=== PATIENT | female | born 1985 | race African-American/Black ===

== ENCOUNTER 2021-11-11 10:00 | Outpatient (RCR) | payer OTHER, SELFPAY ==
--- NOTE | 2021-10-09 14:44 | PTOPEVAL ---
Addendum entered by Sandee Lemons, PT, DPT 10/13/21 11:29: New Attending Provider: Mac Diez DO Addendum entered by Sandee Lemons, PT, DPT 10/09/21 16:14: PHYSICAL THERAPY INITIAL EVALUATION. Original Note: PHYSICAL THERAPY PROGRESS REPORT AND DISCHARGE SUMMARY. Thank you for referring NABILA CORREA to [facility].? The patient is scheduled to be seen for therapy? 2x/week for 4 weeks. Please review, sign, date and return this plan of care BONI. I agree with and certify that the following plan of care is medically necessary. Referring Physician Date Attending Provider: Deneen Henry, JOSE CRUZC *PT Outpatient Evaluation Start: 10/09/21 Evaluation Information Diagnosis low back pain Onset chronic Subjective Information Pt reports a 20 year history Query Text:As Reported By Patient/ of back pain that causes her Family to have muscle spasms. She has been taking muscle relaxers on and off for many years. She states she stands a lot for work and will get shooting pains down the R leg. She states while she is walking she can feel a pulling sensations in her back and posterior leg. She does report intermittent widespread throughout her lower back. She reports intermittent numbness down to the knee. 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 Pain Assessment Self Report Pain Assessment Lower Back Reported Pain Level 7 Pain Description Numbness,Tightness Pain Radiation Right Leg Pain Frequency Chronic,Intermittent Lowest Pain Intensity 5 Greatest Pain Intensity 10 Pain Aggravating Factors Bending,Prolonged Position, Walking,Weight Bearing/ Standing Patient Lumbar ROM Lumbar Flexion Active Ankle Lumbar Extension (0-40) 40 Lateral Flexion able to reach lateral knee Query Text:Active Hands to: joint bilaterally - reports of pain with R lateral flexion Lateral Rotation Right (0-45) 20 Lateral Rotation Left (0-45) 20 Lumbar Comments 13 cm of forward flexion, 6 cm of extension - no reports of movement bias with repeated flexion/extension Lower Extremity Range of Motion Gross Lower Extremity Range of Motion pain reported at max hip Comment
--- NOTE | 2021-10-09 16:15 | PCPTNOTE ---
PHYSICAL THERAPY INITIAL EVALUATION. Thank you for referring NABILA CORREA to [facility].? The patient is scheduled to be seen for therapy? 2x/week for 4 weeks. Please review, sign, date and return this plan of care BONI. I agree with and certify that the following plan of care is medically necessary. Referring Physician Date Attending Provider: Deneen Henry, JOSE CRUZC *PT Outpatient Evaluation Start: 10/09/21 Evaluation Information Diagnosis low back pain Onset chronic Subjective Information Pt reports a 20 year history Query Text:As Reported By Patient/ of back pain that causes her Family to have muscle spasms. She has been taking muscle relaxers on and off for many years. She states she stands a lot for work and will get shooting pains down the R leg. She states while she is walking she can feel a pulling sensations in her back and posterior leg. She does report intermittent widespread throughout her lower back. She reports intermittent numbness down to the knee. 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 Pain Assessment Self Report Pain Assessment Lower Back Reported Pain Level 7 Pain Description Numbness,Tightness Pain Radiation Right Leg Pain Frequency Chronic,Intermittent Lowest Pain Intensity 5 Greatest Pain Intensity 10 Pain Aggravating Factors Bending,Prolonged Position, Walking,Weight Bearing/ Standing Patient Lumbar ROM Lumbar Flexion Active Ankle Lumbar Extension (0-40) 40 Lateral Flexion able to reach lateral knee Query Text:Active Hands to: joint bilaterally - reports of pain with R lateral flexion Lateral Rotation Right (0-45) 20 Lateral Rotation Left (0-45) 20 Lumbar Comments 13 cm of forward flexion, 6 cm of extension - no reports of movement bias with repeated flexion/extension Lower Extremity Range of Motion Gross Lower Extremity Range of Motion pain reported at max hip Comments flexion Lower Extremity Muscle Strength Testing Gross Lower Extremity Strength BLE grossly 4+/5 except hip abduction
--- NOTE | 2021-10-13 08:48 | PCPTNOTE ---
Patient did not show up for scheduled appointment this date. Called and spoke with Pt, she apologized for missing and thought her appointment was at 14:30, she is currently in orientation for work. Reminded Pt of upcoming appointment on Wednesday10/17/21 is at 14:30. This in Pt's first N/S.
--- NOTE | 2021-10-13 11:30 | PTOPEVAL ---
NABILA CORREA Female : 1985 [facility]# [id number] 10/09/21 14:44 - PT OP Evaluation by Sandee Lemons, PT, DPT Acct Num: [id number] : 1985 Patient Age: 36 PHYSICAL THERAPY INITIAL EVALUATION. Thank you for referring NABILA CORREA to [facility].? The patient is scheduled to be seen for therapy? 2x/week for 4 weeks. Please review, sign, date and return this plan of care BONI. I agree with and certify that the following plan of care is medically necessary. Referring Physician Date Attending Provider: Mac Diez DO *PT Outpatient Evaluation Start: 10/09/21 Evaluation Information Diagnosis low back pain Onset chronic Subjective Information Pt reports a 20 year history Query Text:As Reported By Patient/ of back pain that causes her Family to have muscle spasms. She has been taking muscle relaxers on and off for many years. She states she stands a lot for work and will get shooting pains down the R leg. She states while she is walking she can feel a pulling sensations in her back and posterior leg. She does report intermittent widespread throughout her lower back. She reports intermittent numbness down to the knee. 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 Pain Assessment Self Report Pain Assessment Lower Back Reported Pain Level 7 Pain Description Numbness,Tightness Pain Radiation Right Leg Pain Frequency Chronic,Intermittent Lowest Pain Intensity 5 Greatest Pain Intensity 10 Pain Aggravating Factors Bending,Prolonged Position, Walking,Weight Bearing/ Standing Patient Lumbar ROM Lumbar Flexion Active Ankle Lumbar Extension (0-40) 40 Lateral Flexion able to reach lateral knee Query Text:Active Hands to: joint bilaterally - reports of pain with R lateral flexion Lateral Rotation Right (0-45) 20 Lateral Rotation Left (0-45) 20 Lumbar Comments 13 cm of forward flexion, 6 cm of extension - no reports of movement bias with repeated flexion/extension Lower Extremity Range of Motion Gross Lower Extremity Range of Motion pain reported at max hip Comments flexion Lower Extremity Muscle Strength Te
--- NOTE | 2021-10-14 09:29 | PCPTNOTE ---
Patient called & cancelled scheduled appointment on 10/17, 10/21, 10/24, and 10/27 due to having eye surgery.
--- NOTE | 2021-10-17 08:53 | PCPTNOTE ---
Patient called & cancelled scheduled appointment this date due to having eye surgery.
--- NOTE | 2021-10-29 09:39 | PCPTNOTE ---
Patient did not show up for scheduled appointment this date. Called and had to leave a message
--- NOTE | 2021-11-03 14:36 | PCPTNOTE ---
Patient called & cancelled scheduled appointment this date due to not being able to make it.
--- NOTE | 2021-11-11 10:27 | PCPTNOTE ---
Patient did not show up for scheduled appointment this date.
--- NOTE | 2021-11-11 10:29 | PCPTNOTE ---
Attending Provider: Mac Diez DO Patient:NABILA CORREA Date of :1985 PHYSICAL THERAPY DISCHARGE SUMMARY. Patient has not returned for any further treatments since 10/09/2021, therefore she will be discharged at this time. Patient?s initial visit was on 10/09/2021 13:30 and she had a total of 1 visits, she has no showed 3 times and cancelled the other remaining appointments. A voicemail was left notifying her of discharge. Thank you for referring this patient to [facility]. Please review, sign, date and return this discharge summary BONI. I have been updated about the patient's current status and I agree with discharge from the above service at this time. Referring Physician Date
== END 2021-11-11 13:39 | disposition home or self-care (01) ==
LOC: ANHPT 10:00
PROVIDERS: PCP Internal Medicine; Visit Provider Internal Medicine
DX: M54.9 Dorsalgia, unspecified (principal); G89.29 Other chronic pain
CPT/HCPCS: 97112; 97161; 99199

== ENCOUNTER 2022-05-05 12:27 | Outpatient (CLI) | payer OTHER, SELFPAY ==
--- NOTE | ~2022-05-05 | US_ITS ---
Pelvic ultrasound. Clinical History: Excessive and frequent menstruation Technique: Realtime transabdominal and transvaginal scanning of the pelvis was performed. Color flow Doppler and Doppler spectral analysis were performed. Findings: The uterus is anteverted. The endometrial stripe has a thickness of 4 mm. No focal myometr ial mass is identified. Cervical nabothian cysts are present. The right ovary measures 4.3 x 2.5 x 2.7 cm. No significant right ovarian or adnexal mass is seen. The left ovary measures 3.8 x 2.9 x 3.2 cm. No significant left ovarian or adnexal mass is seen. Both ovaries demonstrate small peripherally oriented follicular cysts. Vascular flow present in both ovaries on Doppler spectral analysis. There is no evidence of free fluid in the cul de sac. Impression: Morphologic findings of the ovaries raise the possibility of polycystic ovarian syndrome. Correlate c linically. Reviewed, dictated and finalized at [facility]. Y CEMENTER Impression: Morphologic findings of the ovaries raise the possibility of polycystic ovarian syndrome. Correlate clinically.
== END 2022-05-05 12:28 | disposition home or self-care (01) ==
PROVIDERS: PCP Internal Medicine; Visit Provider Obstetrics & Gynecology
DX: N92.0 Excessive and frequent menstruation with regular cycle (principal)
CPT/HCPCS: 76830; 76856

== ENCOUNTER 2022-05-21 10:15 | Outpatient (CLI) | payer OTHER, SELFPAY ==
--- NOTE | ~2022-05-21 | XR_ITS ---
EXAMINATION: XR foot RT min 3V DATE: 05/21/2022 10:53 INDICATION: Right foot pain at the proximal fourth and fifth metatarsals TECHNIQUE: Dorsoplantar, two oblique and lateral views of the right foot were obtained. COMPARISON: None. FINDINGS: Alignment is normal. No fracture. Minimal to mild polyarticular osteoarthritis throughout the right f oot most prominent at the first, second and fourth tarsal metatarsal joints. No erosions to suggest i nflammatory arthritis. Small enthesophytes at the calcaneus and medial malleolus. Soft tissues are un remarkable. No ankle joint effusion. IMPRESSION: 1. Minimal to mild polyarticular osteoarthritis in the right foot greatest at the first, second and f ourth tarsal metatarsal joints. Reviewed, dictated and finalized at location L. IMPRESSION: 1. Minimal to mild polyarticular osteoarthritis in the right foot greatest at t he first, second and fourth tarsal metatarsal joints.
== END 2022-05-21 10:16 | disposition home or self-care (01) ==
PROVIDERS: PCP Nurse Practitioner; Visit Provider Nurse Practitioner
DX: M19.071 Primary osteoarthritis, right ankle and foot (principal)
CPT/HCPCS: 73630

== ENCOUNTER 2023-05-14 12:14 | Outpatient (CLI) | payer BC, OTHER, SELFPAY ==
--- NOTE | 2023-05-14 15:11 | WPDPFTINT ---
PFT Procedure Performed PFT Procedure Performed Spirometry with Pre/Post Bronchodilator Plethysmography (Lung Vol) Diffusing Cap (DLCO) Flow Vol Loop PFT Interpretation This is a pulmonary function test with pre and post-bronchodilator spirometry, plethysmography and diffusing capacity. The test was performed and results interpreted in accordance with the 2019 and 2005 ATS/ERS Task Force guidelines respectively using the Global Lung Function Initiative-2012 reference equations. Patient demonstrated good effort and cooperation. Reproducibility criteria were met. The quality of the pre bronchodilator spirometry maneuver was Grade A and post bronchodilator spirometry maneuver was Grade A. Findings: Spirometry: the contour the inspiratory and expiratory flow tracing are normal. The pre bronchodilator FVC is 1.71 L, 52% predicted. The pre bronchodilator FEV1 is 1.46 L, 54% predicted. The pre bronchodilator FEV1: FVC ratio is 85%. The post bronchodilator FVC is 1.48 L, representing a 14% decrease. The post bronchodilator FEV1 is 1.46 L, representing no change. The post bronchodilator FEV1: FVC ratio is 99%. Plethysmography: The total lung capacity is 3.31 L, 72% predicted. The functional residual capacity is 1.32 L, 50% predicted. The residual volume is 1.30 L, 88% predicted. Diffusing capacity: The diffusing capacity unadjusted for hemoglobin and carboxyhemoglobin is 11.8, 48% predicted. The diffusing capacity adjusted for alveolar volume is 5.26, 111% predicted. Impression: There is a moderately severe restrictive ventilatory abnormality. The spirometry is normal without evidence of an obstructive abnormality. There is no significant improvement after inhaling a single dose of albuterol. The diffusing capacity unadjusted for hemoglobin and carboxyhemoglobin is moderately decreased and normalizes when adjusted for alveolar volume. There are no prior studies for comparison
== END 2023-05-14 12:15 | disposition home or self-care (01) ==
LOC: ANHPFT 12:15
PROVIDERS: PCP Nurse Practitioner Family; Visit Provider Nurse Practitioner Family
DX: R06.02 Shortness of breath (principal); R94.2 Abnormal results of pulmonary function studies
CPT/HCPCS: 94060; 94726; 94729

== ENCOUNTER 2023-05-19 12:39 | Outpatient (CLI) | payer BC, OTHER, SELFPAY ==
--- NOTE | ~2023-05-19 | XR_ITS ---
EXAMINATION: XR chest 2V DATE: 05/19/2023 12:54 INDICATION: Shortness of breath and chest pain with coughing TECHNIQUE: PA and lateral views of the chest were obtained. COMPARISON: None FINDINGS: Mild opacities at the left lung base. Right lung is clear. No pulmonary edema, pleural effusion or pn eumothorax. The cardiomediastinal silhouette is normal. Cholecystectomy clips in right upper quadrant . IMPRESSION: 1. Mild left basilar opacities which could represent atelectasis or pneumonia. Reviewed, dictated and finalized at location B.
== END 2023-05-19 12:40 | disposition home or self-care (01) ==
LOC: ANHIMG 12:43
PROVIDERS: PCP Nurse Practitioner Family; Visit Provider Nurse Practitioner Family
DX: J98.4 Other disorders of lung (principal); R06.02 Shortness of breath; R91.8 Other nonspecific abnormal finding of lung field
CPT/HCPCS: 71046

== ENCOUNTER 2023-06-23 14:40 | Outpatient (CLI) | payer BC, OTHER, SELFPAY ==
--- NOTE | ~2023-06-23 | CT_ITS ---
EXAMINATION:CT diagnostic chest wo con DATE: 06/23/2023 14:57 INDICATION: Other disorders of lung. Shortness of breath. TECHNIQUE: Computed tomography (CT) of the chest was performed without intravenous contrast. Automate d exposure control and iterative reconstruction technique were employed. The dose-length product (DLP ) was 512.57 mGy-cm. COMPARISON: Chest 2 views 05/19/2023 FINDINGS: The lung volumes are small. There is a 7 mm nodule in left lower lobe. There is mild atelec tasis bilaterally. There are peripheral mild peripheral groundglass opacities in all lobes. No bronch iectasis or honeycombing. No pleural effusion. The heart size is normal. No pericardial effusion. The re is mild thoracic spondylosis. IMPRESSION: 1. Small lung volumes. Mild peripheral groundglass opacities in all lobes may be mild atelectasis, at ypical pneumonia, or chronic lung disease such as nonspecific interstitial pneumonia (NSIP) or desqua mative interstitial pneumonia (DIP). 2. 7 mm nodule in left lung lower lobe, probably benign. Noncontrast low-dose chest CT is recommended in 6 months. Reviewed, dictated and finalized at location E. IMPRESSION: 1. Small lung volumes. Mild peripheral groundglass opacities in all lobes may b e mild atelectasis, atypical pneumonia, or chronic lung disease such as nonspec ific interstitial pneumonia (NSIP) or desquamative interstitial pneumonia (DIP) . 2. 7 mm nodule in left lung lower lobe, probably benign. Noncontrast low-dose c hest CT is recommended in 6 months.
== END 2023-06-23 14:41 | disposition home or self-care (01) ==
PROVIDERS: PCP Nurse Practitioner Family; Visit Provider Nurse Practitioner Family
DX: R06.02 Shortness of breath (principal); J98.4 Other disorders of lung; R91.1 Solitary pulmonary nodule
CPT/HCPCS: 71250

== ENCOUNTER 2023-10-27 13:31 | Outpatient (CLI) | payer OTHER, SELFPAY ==
[2023-10-27 14:05] LABS: Alveolar/Arterial O2 Gradient 16.1 mmHg; Base Excess ABG -2.2 mEq/l (+/-2.0); Carboxyhemoglobin 0.2 % THb (0-2.0); Fractional Inspired Oxygen 21 %; HCO3 ABG 21.1 mEq/l (22.0-26.0); Methemoglobin ABG 0.1 %THb (0-1.5); Oxygen Content ABG 17.8 %vol (16.0-22.0); Oxygen Saturation ABG 97.6 % (95.0-100.0); Oxyhemoglobin 97.4 % THb (90.0-100.0); PCO2 ABG 31.8 mmHg (35.0-45.0); PO2 ABG 95.6 mmHg (80.0-100.0); PO2 FiO2 Ratio Arterial Blood 4.55 %; Reduced Hemoglobin 2.3 %THb (0-5.0); Total Hemoglobin 12.9 g/dL (12.0-18.0)
--- NOTE | 2023-10-27 14:17 | ECHO_ITS ---
Patient Info Name: Lacey Sauer Age: 38 years : 1985 Gender: Female Ht: 64 in Wt: 265 lbs BSA: 2.40 m2 HR: 83 bpm BP: 118 / 88 mmHg Heart Rhythm: Sinus Rhythm Technical Quality: Good Exam Date: 10/27/2023 2:27 PM Exam Location: Echo Lab Patient Status: Outpatient Admit Date: 10/27/2023 Staff Ordering Physician: Lefty Brunson MD Guest Services Coordinator: Alexus Gonzalez RDCS Attending Provider: Lefty Brunson MD Referring Physician: Boy SUERO; Exam Type: CA echo doppler color flow Study Info Indications R06.02 - Shortness of breath Complete two-dimensional, color flow and Doppler transthoracic echocardiogram is performed. Summary 1. Complete two-dimensional, color flow and Doppler transthoracic echocardiogram is performed. 2. Left ventricular chamber dimension is normal. 3. Left ventricular systolic function is normal, estimated at 65-70%. 4. The left ventricular diastolic function is normal. 5. E/e' 9 is minimally elevated. 6. There is trace tricuspid valve regurgitation. 7. No pulmonary hypertension, estimated pulmonary arterial systolic pressure is 29 mmHg. Left Ventricle E/e' 9 is minimally elevated. Left ventricular chamber dimension is normal. Left ventricular systolic function is normal, estimated at 65-70%. The left ventricular diastolic function is normal. Right Ventricle Right ventricular systolic function is normal and with normal TAPSE 1.8 cm. Right ventricular chamber dimension is normal. Left Atria Left atrial chamber dimension is normal. Right Atria Right atrial chamber dimension is normal. Aortic Valve The aortic valve is trileaflet. There is no aortic valve stenosis. There is no aortic valve regurgitation. Pulmonic Valve There is no pulmonic regurgitation. Mitral Valve There is no mitral valve stenosis. There is no mitral valve regurgitation. Tricuspid Valve There is trace tricuspid valve regurgitation. No pulmonary hypertension, estimated pulmonary arterial systolic pressure is 29 mmHg. Pericardium/Pleural There is no pericardial effusion. Inferior Vena Cava Normal inferior vena cava with >50% collapse upon inspiration consistent with normal right atrial pressure, 5 mmHg. Aorta The aortic root size at the sinus of Valsalva is normal. Left Ventricular Outflow Tract Name Value Normal LVOT 2D LVOT Diameter 2.0 cm LVOT Doppler LVOT Peak Gradient 4 mmHg LVOT Mean Gradient 2 mmHg LVOT VTI 19 cm LVOT VTI/AV VTI Ratio 0.8 LVOT Stroke Volume 60 ml LVOT CO 3.9 l/min LVOT CI 1.6 l/min/m2 Pulmonic Valve Name Value Normal RVOT Doppler RVOT Peak Gradient 1 mmHg PV Doppler PV Peak Gradie
[2023-10-27 14:18] LABS: Device ROOM AIR; Modified Allen's Test Pass; Site Drawn RIGHT RADIAL
--- NOTE | 2023-10-28 13:08 | WPDSIXMINUTE ---
Six Minute Walk Procedure Procedure Performed Pulmonary Stress Test (6 min walk) Six Minute Walk Six Minute Walk: DATE OF SERVICE: 10/27/2023 REQUESTING: Dr Lefty Brunson REASON FOR TESTING: SIX MINUTE WALK This test was conducted per ATS guidelines. The initial saturation was 98%, and initial heart rate was 86 beats per minute. The patient walked without stopping, completing 1400 ft/427.7 m. The saturation at the end of testing was 96%, and the heart rate was 113 beats per minute. The patient had negligible dyspnea and fatigue starting the test and by the end of the test had a Grecia scale 7 which is significant shortness of breath. Highest heart rate was 120 bpm. IMPRESSION: This is a normal study. The patient did not require supplemental oxygen with exertion. Jesusita Espinosa MD
== END 2023-10-27 13:32 | disposition home or self-care (01) ==
LOC: ANHPFT 13:33
PROVIDERS: PCP Nurse Practitioner Family; Visit Provider Internal Medicine Pulmonary Disease
DX: R06.02 Shortness of breath (principal); J98.4 Other disorders of lung
CPT/HCPCS: 36600; 82375; 82805; 83050; 93306; 94618

== ENCOUNTER 2023-11-19 08:01 | Outpatient (CLI) | payer OTHER, SELFPAY ==
--- NOTE | 2023-12-14 16:54 | WPDSLEEPSTUD ---
Sleep Study Date of Study: 11/19/23 Ordering Provider: Lefty Brunson MD Interpreting Physician: Julia Hills DO Sleep Study Type: Polysomnogram Height: 1.65 m Weight: 120.202 kg Body Mass Index: 44.1 Neck Circumference (inches): 17 [place]: 7 Reason for Sleep Study Snoring, daytime hypersomnia Sleep History The patient is a 38 year old female that had a sleep study ordered the pulmonary group for evaluation of sleep apnea. The patient rarely awakens from sleep short of breath. She occasionally awakens night with heartburn belching or. She frequently snores is occasionally loud others complain. She rarely wakes up gasping for air throughout the. She denies having breathing problems observed herself or others. She occasionally sweats excessively at night. She rarely has heart palpitations or irregular heartbeats during. She occasionally falls asleep during the day while driving. She denies sleep paralysis, cataplexy and/ hypnopompic hallucinations. She denies having trouble at school or work due to sleepiness. She denies feeling afraid of going sleep. She denies having nightmares. She occasionally her dreams. She occasionally thoughts racing through her. She denies sad, depressed or anxious. She denies having muscular tension. She occasionally notices parts of her body jerk. She rarely kicks during the night. She rarely has crawling and aching feelings she rarely has leg pain the. She frequently grinds her teeth during sleep but never awakens with morning jaw pain. She is frequently bothered by pain during the day and is frequently awakened by pain during the night. She occasionally wakes up feeling stiff morning. She occasionally wakes up with sore or achy muscles. She rarely wakes up with pain in the neck, spine or other joints. She goes to bed at 11:00 p.m. both weekdays and weekends. The amount of time it takes for her to fall asleep is variable. She wakes up often throughout the night to urinate and the amount of time for her to fall back asleep is variable. She wakes up between 5-6 a.m. on weekdays a between 5-7 a.m. on weekends. She typically gets 6-8 hours of sleep per night. She does not stay in bed after waking up in morning. She currently lives with her and son. She denies consuming any caffeinated beverages within 2 hours of bedtime. She denies engaging physical exercise bedtime. She will watch television before asleep. She will take naps afternoon the evening and they are refreshing. She denies consuming caffeinated beverages during the day. She quit smoking cigarettes 12 years ago. She denies alcohol consumption. She does smoke marijuana daily. [facility] Past Medical History Medical History Allergies Shortness of Breath Surgical History Surgical History H/O wisdom tooth extraction Hx of cholecystectomy 03/06/2010 Hx of non-cataract eye surgery Family History Family History Grandparent Cancer pancreatic Hypertension Mother Hypertension Cerebrovascular accident Thyroid disorder Diabetes mellitus Social History Social History Smoking status: Never smoker (Never tobacco smoker - daily marijuana smoking) Alcohol intake: current Substance use: never Lack of Transportation: No Lack of Food: Never True Current Housing: I Have Housing Concerned About Future Housing: No Difficulty Paying Gas/Electric Bills: YES Difficulty Paying for Meds: No Currently Unemployed: No Education: Trade/Vocational Certificate Difficulty w/ Childcare or Family Care: No Living arrangements: with family Occupation/Education: occupation 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
[2023-12-15 11:51] VITALS: BMI 44.1
== END 2023-11-20 07:45 | disposition home or self-care (01) ==
PROVIDERS: PCP Nurse Practitioner Family; Visit Provider Internal Medicine Pulmonary Disease
DX: G47.10 Hypersomnia, unspecified (principal); G47.33 Obstructive sleep apnea (adult) (pediatric)
CPT/HCPCS: 95810

== ENCOUNTER 2023-11-20 06:47 | Outpatient (CLI) | payer OTHER, SELFPAY ==
[2023-11-20 07:44] LABS: CRP < 0.5 mg/dL (<1.0); Creatine Kinase 591 U/L (30-135)
[2023-11-20 07:49] LABS: Erythrocyte Sedimentation Rate 15 mm/hr (0-20)
[2023-11-22 14:12] LABS: SS-A <1.0 NEG AI (<1.0 NEG); SS-B <1.0 NEG AI (<1.0 NEG)
[2023-11-22 14:23] LABS: Aldolase 9.5 U/L (< OR = 8.1)
[2023-11-23 15:09] LABS: Anti Cyclic Citrullinated Pept <16 UNITS
[2023-11-26 16:39] LABS: JO-1 AB <11 SI (<11); MI-2 Alpha Ab <11 SI (<11); MI-2 Beta Ab <11 SI (<11); NXP-2 AB <11 SI (<11); TIF1 Gamma Ab <11 SI (<11)
== END 2023-11-20 06:48 | disposition home or self-care (01) ==
PROVIDERS: PCP Nurse Practitioner Family; Visit Provider Internal Medicine Pulmonary Disease
DX: J98.4 Other disorders of lung (principal); J84.9 Interstitial pulmonary disease, unspecified; R91.1 Solitary pulmonary nodule
CPT/HCPCS: 36415; 82085; 82550; 84182; 85652; 86140; 86200; 86235

== ENCOUNTER 2023-12-16 08:52 | Outpatient (CLI) | payer OTHER, SELFPAY ==
--- NOTE | ~2023-12-16 | CT_ITS ---
CT Scan of the Chest without Contrast: Clinical Indication: Other disorder of lung Technique: Contiguous sections were acquired throughout the chest without intravenous contrast. Dose reduction technique was used on this scan by utilizing automated exposure control and iterative recon struction technique. The dose-length product (DLP) was 481.68 mGy-cm. COMPARISON: 06/23/2023 Findings: There is no evidence of any significant mediastinal, hilar or axillary lymphadenopathy. The mediastin al soft tissues appear normal. There is no evidence of pleural or pericardial effusion. There are mild peripheral patchy ground glass opacities and minimal areas of peripheral interstitial thickening. Images through the upper abdomen reveal no abnormalities. Impression: Mild patchy peripheral ground glass opacities and minimal areas of peripheral interstitial thickening . Appearance is similar to prior exam. Diagnostic considerations could include chronic interstitial d isease, Covid 19 or other infectious/inflammatory conditions. Clinical correlation is required. Reviewed, dictated and finalized at [facility]. Impression: Mild patchy peripheral ground glass opacities and minimal areas of peripheral i nterstitial thickening. Appearance is similar to prior exam. Diagnostic conside rations could include chronic interstitial disease, Covid 19 or other infectiou s/inflammatory conditions. Clinical correlation is required.
== END 2023-12-16 08:53 | disposition home or self-care (01) ==
PROVIDERS: PCP Nurse Practitioner Family; Visit Provider Internal Medicine Pulmonary Disease
DX: R06.02 Shortness of breath (principal); J98.4 Other disorders of lung
CPT/HCPCS: 71250

== ENCOUNTER 2024-04-26 10:09 | Outpatient (CLI) | payer MEDICAID, SELFPAY ==
--- OUTSIDE RECORDS SUMMARY | 2024-04-26 10:21 | XMS_ITS | Referral Summary ---
Author Organization [facility] Address [address] [place] [address] Care Team Providers Care On Air Announcer Name Role Phone Mac Diez DO Primary Care Provider [phone] Source Comments [facility],non-owned Affiliates and Associated Physician Practices is amultiple site organization consisting of ambulatory clinics and hospital sitesin [place], [place], [place] and [place]. This disclosure is being madepursuant to the Care Everywhere program and may not contain all information available regarding this patient. Last updated 17.[facility] Allergies Active Allergy Reactions Criticality Noted Date Comments Penicillins Rash Medium 08/10/2019 Medications * Be aware that medications may not be up to date on this document. Alwaysverify current medications with the patient. Medication Sig Dispensed Refills Start Date End Date Status albuterol HFA (Proventil; Ventolin; Proair) 108 (90 Base) MCG/ACT inhaler INHALE 1 PUFF BY MOUTH EVERY 4 HOURS NEEDED FOR SHORTNESS OF BREATH FOR WHEEZING 09/10/2021 Active lidocaine (Lidoderm) 5 % patch USE 1 PATCH EXTERNALLY ONCE DAILY. LEAVE ON MOST PAINFUL AREA FOR UP TO 12 HOURS 10/07/2021 Active medroxyPROGESTERone (Depo-Provera) 150 MG/ML prefilled syringe ADMINISTER 1 ML IN THE MUSCLE EVERY 3 MONTHS 02/24/2022 Active methocarbamol (Robaxin) 750 MG tablet Take 1 (one) tablet by mouth at bedtime 02/10/2022 Active erythromycin (Romycin) 5 MG/GM ophthalmic ointment Apply thin ribbon to incisions four times a day as well as into both eyes at bedtime. 3.5 g 3 06/15/2022 Active Active Problems Problem Noted Date Diagnosed Date Prolapse of lacrimal gland, bilateral 03/18/2022 Eyelid retraction left upper eyelid 03/18/2022 Social History Tobacco Use Types Packs/Day Years Used Date Smoking Tobacco: Never Smokeless Tobacco: Never Tobacco Cessation:Counseling Given: Not Answered Alcohol Use Standard Drinks/Week Comments Never 0 (1 standard drink = 0.6 oz pur e alcohol) Sex and Gender Information Value Date Recorded Sex Assigned at Not on file Gender Identity Not on file Sexual Orientation Not on file Last Filed Vital Signs Vital Sign Reading Time Taken Comments Blood Pressure 125/84 06/15/2022 2:56 PM CDT Pulse 64 06/15/2022 3:00 PM CDT Temperature 36.5 C (97.7 F) 06/15/2022 2:46 PM CDT Respiratory Rate 15 06/15/2022 3:00 PM CDT Oxygen Saturation 99% 06/15/2022 3:00 PM CDT Inhaled Oxygen Concentration - - Weight 128.4 kg (283 lb) 06/15/2022 10:53 AM CDT Height 165.1 cm (5' 5 ) 06/15/2022 10:53 AM CDT Body Mass Index 47.09 06/15/2022 10:53 AM CDT Plan of Treatment Not on file Care Teams On Air Announcer Relationship Specialty Start Date End Date Mac Diez DO [address] [place] [id number] PCP - General Internal Medicine 03/18/22
--- OUTSIDE RECORDS SUMMARY | 2024-04-26 10:21 | XMS_ITS | Clinical Summary ---
Author Organization [facility] Address [facility] [place] [place] [address] Care Team Providers Care Operation Specialist Name Role Phone MominYany[place]unkerton LOCAL AREA NETWORK SYSTEMS ADMINSTRATOR Primary Care Provider [phone] Allergies Active Allergy Reactions Criticality Noted Date Comments Penicillins Rash Low 08/10/2019 Medications No known medications Social History Tobacco Use Types Packs/Day Years Used Date Smoking Tobacco: Never Smokeless Tobacco: Never Alcohol Use Standard Drinks/Week Comments Not Currently 0 (1 standard drink = 0.6 oz pur e alcohol) Comments No Sex and Gender Information Value Date Recorded Sex Assigned at Not on file Legal Sex Female 8:18 PM CDT Gender Identity Not on file Sexual Orientation Not on file Last Filed Vital Signs Vital Sign Reading Time Taken Comments Blood Pressure 133/88 09/29/2022 9:53 AM CDT Pulse 94 09/29/2022 9:53 AM CDT Temperature 37.2 C (98.9 F) 09/29/2022 9:53 AM CDT Respiratory Rate 18 09/29/2022 9:53 AM CDT Oxygen Saturation 100% 09/29/2022 9:53 AM CDT Inhaled Oxygen Concentration - - Weight 127.5 kg (281 lb 1.4 oz) 09/29/2022 9:53 AM CDT Height 165.1 cm (5' 5 ) 09/29/2022 9:53 AM CDT Body Mass Index 46.78 09/29/2022 9:53 AM CDT Plan of Treatment Health Maintenance Due Date Last Done Comments Cervical Cancer Screening Pa p Smear (Age 30 to 64) Every 3 Years 1985 Annual Physical 1988 Hepatitis C 2003 DTaP, Tdap and Td Vaccines ( 1 - Tdap) 2004 Hepatitis B Vaccines (1 of 3 - 19+ 3-dose series) 2004 Cervical Cancer Screening Pa p with HPV Testing (Age 30 to 64) Every 5 Years 2015 Cervical Cancer Screening wi th HPV 2015 COVID-19 Vaccine (4 - 2023-2 5 season) 2023 01/14/2022, 10/30/2020, 10/09/2020 Influenza Adult (#1) 2023 HPV Vaccines Aged Out No longer eligi ble based on patient's age to complete this topic Meningococcal B Vaccine Aged Out No l onger eligible based on patient's age to complete this topic Meningococcal Vaccine Aged Out No joyce edel eligible based on patient's age to complete this topic Pneumococcal Vaccine: Pediatrics (0 to 5 Years) and At-Risk Patients (6 to 64 Years) Aged Out No longer eligible b ased on patient's age to complete this topic RSV Immunizations Under 20 Months Aged Out No longer eligible b ased on patient's age to complete this topic [place] [address] Care Teams Operation Specialist Relationship Specialty Start Date End Date Becky Momin NP [address] [place] [id number] PCP - General Nurse Practitioner Family 09/29/22
--- OUTSIDE RECORDS SUMMARY | 2024-04-26 10:21 | XMS_ITS | Clinical Summary ---
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 Gender Identity Not on file Sexual Orientation Not on file Plan of Treatment Health Maintenance Due Date Last Done Comments Hepatitis C Virus (HCV) Screening 1985 TdaP Immunization 1985 Hepatitis B Immunization (1 of 3 - 19+ 3-dose series) 2004 Pap Smear 2006 Cervical Cancer Screening (CCS) 2015 HPV/Cotest 2015 Influenza Immunization (#1) 2023 SARS-COV-2 Immunization ( season) 2023 Respiratory Syncytial Virus (RSV) Immunization (Adult) (1 - 1-dose 75+ series) 2060 Meningococcal Immunization (ACWY) Aged Out No longer eligible based on patient's age to complete this topic Pneumococcal Immunization Combined Aged Out No longer eligible based on patient's age to complete this topic Rotavirus Immunization Aged Out No lo nger eligible based on patient's age to complete this topic
--- OUTSIDE RECORDS SUMMARY | 2024-04-26 10:21 | XMS_ITS | Clinical Summary ---
Author Organization [facility] Address [address] [place] [address] Care Team Providers Care Gas Stove Servicer Helper Name Role Phone Mac Diez DO Primary Care Provider [phone] Source Comments [facility],non-owned Affiliates and Associated Physician Practices is amultiple site organization consisting of ambulatory clinics and hospital sitesin [place], [place], [place] and [place]. This disclosure is being madepursuant to the Care Everywhere program and may not contain all information available regarding this patient. Last updated 17.[facility] Allergies Active Allergy Reactions Criticality Noted Date [...] 03/18/2022 Eyelid retraction left upper eyelid 03/18/2022 Family History Medical History Relation Name Comments Hypertension Father Diabetes - Type 2 Mother Relation Name Status Comments Father Mother Social History Tobacco Use Types Packs/Day Years [...] 06/15/2022 10:53 AM CDT Plan of Treatment Health Maintenance Due Date Last Done Comments PAP SMEAR 1985 HIV SCREENING 2000 HEPATITIS C SCREENING 03/26/2003 DTAP/TDAP/TD VACCINES (1 - Tdap) 2004 HEPATITIS B VACCINE (1 of 3 - 19+ 3-dose series) 2004 COVID-19 VACCINE (2023-2 5 season) 2023 INFLUENZA VACCINE (#1) 2023 DEPRESSION SCREENING 03/08/2024 ZOSTER VACCINE (1 of 2) 2035 HIB VACCINE Aged Out No longer eligi ble based on patient's age to complete this topic HPV VACCINE Aged Out No longer eligi ble based on patient's age to complete this topic MENINGOCOCCAL (Group B) VACCINE Aged Out No longer eligible based on patient's age to complete this topic MENINGOCOCCAL VACCINE Aged Out No joyce edel eligible based on patient's age to complete this topic PNEUMOCOCCAL VACCINE Aged Out No long er eligible based on patient's age to complete this topic Care Teams Gas Stove Servicer Helper Relationship Specialty Start Date End Date Mac Diez DO [address] [address] PCP - General Internal Medicine 03/18/22
--- OUTSIDE RECORDS SUMMARY | 2024-04-26 10:21 | XMS_ITS | Patient Health Summary ---
Author Organization [facility] Address [address] [place] [address] Care Team Providers Care Financial Administrator Name Role Phone Mac Diez DO Primary Care Provider [phone] Note from [facility]note 2],non-owned Affiliates and Associated Physician Practices is amultiple site organization consisting of ambulatory clinics and hospital sitesin [place], [place], [place] and [place]. This disclosure is being madepursuant to the Care Everywhere program and may not contain all information available regarding this patient. Last updated 17.[facility] Allergies * Penicillins(Rash) -Medium Criticality Medications * Be aware that medications may not be up to date on this document. Alwaysverify current medications with the patient. * albuterol HFA (Proventil; Ventolin; Proair) 108 (90 Base) MCG/ACT inhaler (Started 09/10/2021) INHALE 1 PUFF BY MOUTH EVERY 4 HOURS NEEDED FOR SHORTNESS OF BREATH FOR WHEEZING * lidocaine (Lidoderm) 5 % patch(Started 10/07/2021) USE 1 PATCH EXTERNALLY ONCE DAILY. LEAVE ON MOST PAINFUL AREA FOR UP TO 12 HOURS * medroxyPROGESTERone (Depo-Provera) 150 MG/ML prefilled syringe(Started 02/24/2022) ADMINISTER 1 ML IN THE MUSCLE EVERY 3 MONTHS * methocarbamol (Robaxin) 750 MG tablet(Started 02/10/2022) Take 1 (one) tablet by mouth at bedtime * erythromycin (Romycin) 5 MG/GM ophthalmic ointment(Started 06/15/2022) Apply thin ribbon to incisions four times a day as well as into both eyes at bedtime. 3 refills by 06/15/2023 Active Problems Problem Noted Date Diagnosed Date [...] Mass Index 47.09 06/15/2022 10:53 AM CDT Procedures * PATHOLOGY TISSUE(Performed 06/15/2022) Performed for Eyelid retraction left upper eyelid, Prolapse of lacrimal gland, bilateral * MS CREATE TEAR SAC-NASAL FISTULA(Performed 06/15/2022) Performed for Eyelid retraction left upper eyelid, Prolapse of lacrimal gland, bilateral * REPAIR ENTROPION EYELID(Performed 06/15/2022) Performed for Eyelid retraction left upper eyelid, Prolapse of lacrimal gland, bilateral * HCG URINE QUALITATIVE - POCT (IP) INTERFACED(Performed 06/15/2022) * EYE EXAM(Performed 02/13/2022) Results * PATHOLOGY TISSUE (06/15/2022 1:46 PM CDT) Case Report Surgical Pathology Report Case: [id number] Authorizing Provider: Farida Quintero MD Collected: 06/15/2022 01:47 PM Ordering Location: [facility] OR [facility]AN[facility]/AMB SURGERY Received: 06/15/2022 07:19 PM Pathologist: Dede Petersen MD Specimens: A) - Gland, LEFT LACRIMAL GLAND B) - Gland, RIGHT LACRIMAL GLAND 06/18/2022 2:05 PM [facility] Final Diagnosis Lacrimal gland, left, excision (A): - Lymphocytic dacryoadenitis with germinal centers; 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 The left (A) and right (B) lacrimal glands have bulky lymphocytic infiltrates with significant increase of gland volume. The focus score is at least 4 per 4 mm2; foci of lymphocytes merge with each other. Germinal centers are seen. Lymphoepithelial lesions are not seen. 06/18/2022 2:05 PM [facility] Clinical History The patient is a 37-year-old woman with bilateral lacrimal gland prolapse and dry eye syndrome. 06/18/2022 2:05 PM [facility] Gross Description The requisition and specimen(s) are identified with the patient's name Lacey Sauer. Received in formalin, specimen A , is a 1.1 cm, 0.20 g helton gland. The specimen is inked blue, trisected, and submitted entirely in cassette A1. Received in formalin, specimen 'B', is a 1.5 cm, 0.31 g helton gland. The specimen is inked green, trisected, and submitted entirely in cassette B1.HS/MF 06/18/2022 2:05 PM [facility] Disclaimer The performance characteristics of all immunohistochemical and indirect immunofluorescence stains (if any) cited in this report were determined by the Histopathology Laboratory of [facility]. Some of these tests were developed by our own laboratory and have not been cleared or approved by the US Food and Drug Administration. The FDA does not require this test to go through premarket FDA review. These tests are used for clinical purposes. They should not be regarded as investigational or for research. This laboratory is certified under the Clinical Laboratory Improvement Amendments (CLIA) as qualified to perform high complexity clinical laboratory testing. This case has been personally reviewed and interpreted by the attending (teaching) pathologist. 06/18/2022 2:05 PM CDT [facility] Embedded Images 06/18/2022 2:05 PM CDT [facility] Resection without Tumor GLAND / Unknown 06/15/2022 1:46 PM CDT 06/15/2022 7:19 PM CDT Comment:Pre-op diagnosis: EYELID RETRACTION LEFT UPPER EYELID [H02.534] PRIMARY PROLAPSE OF LACRIMAL GLAND, BILATERAL [H04.163] Resection without Tumor GLAND / Unknown 06/15/2022 1:47 PM CDT 06/15/2022 7:19 PM CDT Comment:Pre-op diagnosis: EYELID RETRACTION LEFT UPPER EYELID [H02.534] PRIMARY PROLAPSE OF LACRIMAL GLAND, BILATERAL [H04.163] Farida Quintero MD LAB - PATHOLOGY/C YTOLOGY ORDERABLES [facility] [address] [place] [address], [facility] [phone] * HCG URINE QUALITATIVE - POCT (IP) INTERFACED (06/15/2022 10:48 AM CDT) HCG Qual Urine Negative Negative 06/15/2022 10:55 AM CDT [facility] Urine URINE / Unknown 06/15/2022 1 0:48 AM CDT 06/15/2022 10:55 AM CDT Farida Quintero MD LAB - POINT OF CA RE ORDERABLES [facility] [address] [place] [address], [facility] [phone] * EYE EXAM (02/13/2022) Anatomical Region Laterality Modality Other Narrative 02/13/2022 Ordered by an unspecified provider. Scanned Document SCANNING ONLY Care Teams Financial Administrator Relationship Specialty Start Date End Date Mac Diez DO [address] [place] [address] PCP - General Internal Medicine 03/18/22
--- NOTE | 2024-04-27 11:13 | WPDPFTINT ---
PFT Procedure Performed PFT Procedure Performed Spirometry with Pre/Post Bronchodilator Plethysmography (Lung Vol) Diffusing Cap (DLCO) Flow Vol Loop PFT Interpretation Lung volumes were measured with the body plethysmography method. The diminished ohyviz-tdp-nylyg lung volumes are indicative of restrictive respiratory disease. Spirometry showed diminished expiratory flow rates and a normal FEV1 to FVC ratio of 87%, also consistent with restrictive respiratory disease. Following administration of a bronchodilator there was no significant increase in the expiratory flow rates. Lung diffusion capacity is moderately reduced at 46% predicted. This diminished lung diffusion capacity coupled with a diminished alveolar volume and a normal DLCO/VA ratio suggests loss of alveolar capillary structure with loss of lung volume as seen in interstitial lung disease. In comparison to previous study in May of 2023, the FVC and FEV1 are little changed but total lung capacity is now lower by approximately 1 L. Lung diffusion capacity is essentially unchanged. Impression: Moderately severe restrictive respiratory disease. Moderately reduced lung diffusion capacity.
== END 2024-04-26 10:10 | disposition home or self-care (01) ==
PROVIDERS: PCP Nurse Practitioner Family; Visit Provider Internal Medicine Pulmonary Disease
DX: J98.4 Other disorders of lung (principal); J84.9 Interstitial pulmonary disease, unspecified
CPT/HCPCS: 94060; 94375; 94726; 94729

== ENCOUNTER 2024-05-18 19:11 | Emergency (ER) | payer MEDICAID, SELFPAY ==
--- NOTE | ~2024-05-18 | XR_ITS ---
XR hand RT min 3V Ordering provider: Fabiola Tapia NP History: . pain 2nd and 3rd proximal metacarpal . Comparison: None. FINDINGS: BONES: No acute fracture or dislocation. JOINT SPACES: Normal. SOFT TISSUES: Normal. IMPRESSION: No acute osseous abnormality right hand. Reviewed, dictated and finalized at location A.
--- OUTSIDE RECORDS SUMMARY | 2024-05-18 19:14 | XMS_ITS | Clinical Summary ---
Author Organization [facility] Address [address] [place] [address] Care Team Providers Care Explosive Technician Name Role Phone Mac Diez DO Primary Care Provider [phone] Source Comments [facility],non-owned Affiliates and Associated Physician Practices is amultiple site organization consisting of ambulatory clinics and hospital sitesin [place], [place], [place] and [place]. This disclosure is being madepursuant to the Care Everywhere program and may not contain all information available regarding this patient. Last updated 17.[facility] Allergies Active Allergy Reactions Criticality Noted [...] - 19+ 3-dose series) 2004 COVID-19 VACCINE ( - 2023-2 5 season) 2023 INFLUENZA VACCINE (#1) 2023 DEPRESSION SCREENING 03/08/2024 ZOSTER VACCINE (1 of 2) 2035 HIB VACCINE Aged Out No longer eligi ble based on patient's age to complete this topic HPV VACCINE Aged Out No longer eligi ble based on patient's age to complete this topic MENINGOCOCCAL (Group B) VACC INE SHARED DECISION-MAKING Aged Out No longer eligibl e based on patient's age to complete this topic MENINGOCOCCAL GROUPS A/C/Y/W VACCINE Aged Out No longer eligible b ased on patient's age to complete this topic PNEUMOCOCCAL VACCINE Aged Out No long er eligible based on patient's age to complete this topic Care Teams Explosive Technician Relationship Specialty Start Date End Date Mac Diez DO [address] [address] PCP - General Internal Medicine 03/18/22
--- OUTSIDE RECORDS SUMMARY | 2024-05-18 19:14 | XMS_ITS | Clinical Summary ---
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
--- OUTSIDE RECORDS SUMMARY | 2024-05-18 19:14 | XMS_ITS | Referral Summary ---
Author Organization [facility] Address [address] [place] [address] Care Team Providers Care Stove Installer Name Role Phone Mac Diez DO Primary Care Provider [phone] Source Comments [facility],non-owned Affiliates and Associated Physician Practices is amultiple site organization consisting of ambulatory clinics and hospital sitesin [place], [place], [place] and [place]. This disclosure is being madepursuant to the Care Everywhere program and may not contain all information available regarding this patient. Last updated 17.[facility] Allergies Active Allergy Reactions Criticality Noted Date [...] of Treatment Not on file Care Teams Stove Installer Relationship Specialty Start Date End Date Mac Diez DO [address] [place] [id number] PCP - General Internal Medicine 03/18/22
--- OUTSIDE RECORDS SUMMARY | 2024-05-18 19:14 | XMS_ITS | Patient Health Summary ---
Author Organization [facility] Address [address] [facility] [place] [address] Care Team Providers Care Chassis Engineer Name Role Phone Mac Diez DO Primary Care Provider [phone] Note from [facility],non-owned Affiliates and Associated Physician Practices is amultiple site organization consisting of ambulatory clinics and hospital sitesin [place], [place], [place] and [place]. This disclosure is being madepursuant to the Care Everywhere program and may not contain all information available regarding this patient. Last updated 17.[facility] Allergies * Penicillins(Rash) -Medium Criticality Medications * [...] eyelid, Prolapse of lacrimal gland, bilateral * IA CREATE TEAR SAC-NASAL FISTULA(Performed 06/15/2022) Performed for Eyelid retraction left upper eyelid, Prolapse of lacrimal gland, bilateral * REPAIR ENTROPION EYELID(Performed 06/15/2022) Performed for Eyelid retraction left upper eyelid, Prolapse of lacrimal gland, bilateral * HCG URINE QUALITATIVE - POCT (IP) INTERFACED(Performed 06/15/2022) * EYE EXAM(Performed 02/13/2022) Results * PATHOLOGY TISSUE (06/15/2022 1:46 PM CDT) Case Report Surgical Pathology Report Case: [id number] Authorizing Provider: Farida Quintero MD Collected: 06/15/2022 01:47 PM Ordering Location: [facility] OR HANNA/AMB SURGERY Received: 06/15/2022 07:19 PM Pathologist: Dede Petersen MD Specimens: A) - Gland, LEFT LACRIMAL GLAND B) - Gland, RIGHT LACRIMAL GLAND 06/18/2022 2:05 PM [facility] Final Diagnosis Lacrimal gland, left, excision (A): - Lymphocytic dacryoadenitis with germinal centers; 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 The left (A) and right (B) lacrimal glands have bulky lymphocytic infiltrates with significant increase of gland volume. The focus score is at least 4 per 4 mm2; foci of lymphocytes merge with each other. Germinal centers are seen. Lymphoepithelial lesions are not seen. 06/18/2022 2:05 PM [facility] Clinical History The patient is a 37-year-old woman with bilateral lacrimal gland prolapse and dry eye syndrome. 06/18/2022 2:05 PM [facility] Gross Description The requisition [...] entirely in cassette B1.HS/MF 06/18/2022 2:05 PM [facility] Disclaimer The performance characteristics of all immunohistochemical and indirect immunofluorescence stains (if any) cited in this report were determined by the Histopathology Laboratory of [facility]. Some of these tests were developed by [...] attending (teaching) pathologist. 06/18/2022 2:05 PM CDT [facility] Embedded Images 06/18/2022 2:05 PM CDT [facility] Resection without Tumor GLAND / [...] Quintero MD LAB - PATHOLOGY/C YTOLOGY ORDERABLES [facility] [address] [place] [address], [facility] [phone] * HCG URINE QUALITATIVE - POCT (IP) INTERFACED (06/15/2022 10:48 AM CDT) HCG Qual Urine Negative Negative 06/15/2022 10:55 AM CDT [facility] Urine URINE / Unknown 06/15/2022 1 0:48 AM CDT 06/15/2022 10:55 AM CDT Farida Quintero MD LAB - POINT OF CA RE ORDERABLES [facility] [address] [place] [address], [facility] [phone] * EYE EXAM (02/13/2022) Anatomical Region Laterality Modality Other Narrative 02/13/2022 Ordered by an unspecified provider. Scanned Document SCANNING ONLY Care Teams Chassis Engineer Relationship Specialty Start Date End Date Mac Diez DO [address] [place] [address] PCP - General Internal Medicine 03/18/22
--- OUTSIDE RECORDS SUMMARY | 2024-05-18 19:14 | XMS_ITS | Clinical Summary ---
Author Organization [facility] Address [facility] [place] [address] Care Team Providers Care Homicide Squad Sergeant Name Role Phone Momin, [place] [employer] Primary Care Provider Allergies Active Allergy Reactions Criticality Noted Date [...] patient's age to complete this topic [place] [address] [place] [address] Care Teams Homicide Squad Sergeant Relationship Specialty Start Date End Date Becky Momin NP [address] [place] [id number] PCP - General Nurse Practitioner Family 09/29/22
--- OUTSIDE RECORDS SUMMARY | 2024-05-18 19:14 | XMS_ITS | Data Portability ---
Author Organization [facility] Address [address] [place] [address] Assessment No assessment recorded. Plan of Treatment Reminders Order Date Submit Date Provider Last Modified By Organization Details Last Modified Time Details Appointments None recorde d. Lab None recorde d. Referral physica l therapi st referra l 2022 [facility] [address] [place], [address], 3 09:41:25 Procedures None recorde d. Surgeries None recorde d. Imaging XR, foot 2022 023 SANDRA Not available 3 11:14:05 Medication Orders diclofe nac sodium 75 mg tablet, delayed release 2022 023 [facility], [address] [facility] [address], [place], [address], 3 12:40:16 Kenalog 40 mg/mL suspens ion for injecti on 2022 023 [email or web address] Not available 3 16:01:15 Kenalog 40 mg/mL suspens ion for injecti on 2022 023 [email or web address] Not available 3 12:16:16 diclofe nac sodium 75 mg tablet, delayed release 2022 023 [facility] [address], [address] [facility] [address], [place], [address], 3 11:29:34 Kenalog 40 mg/mL suspens ion for injecti on 2022 023 [email or web address] Not available 3 11:12:06 Medrol (Jesus) 4 mg tablets in a dose pack 2022 023 [facility], [address] [place], [address], 3 16:20:36 diclofe nac sodium 75 mg tablet, delayed release 2022 023 [facility], [address] [facility] , [place], [address], 3 16:13:39 Kenalog 40 mg/mL suspens ion for injecti on 2022 023 fharry Not available 3 12:46:15 Medrol (Jesus) 4 mg tablets in a dose pack 2022 023 [facility], [address] [facility], [place], [address], 3 11:25:20 diclofe nac sodium 75 mg tablet, delayed release 2022 023 [facility], [address] [facility] , [place], [address], 3 11:22:43 Kenalog 40 mg/mL suspens ion for injecti on 2022 023 [email or web address] Not available 3 10:56:34 Medrol (Jesus) 4 mg tablets in a dose pack 2022 023 [email or web address] [facility], [address] [place], [address], 3 10:56:52 Patient TargetsNo targets recorded. Patient Instructions Encounter Date Encounter Id Patient Instructions Last Modified By Organization Details Last Modified Time 06/11/2022 [id number] metatarsalgia: care instructions fharry Not available 06/11/2022 17:01:20 06/25/2022 [id number] metatarsalgia: care instructions fharry Not available 06/25/2022 11:22:36 08/25/2022 [id number] metatarsalgia: care instructions fharry Not available 08/25/2022 16:13:32 10/07/2022 [id number] metatarsalgia: care instructions fharry Not available 10/07/2022 11:29:23 Reason for Referral Physical Therapist Referral for Osteoarthritis of left knee joint Referring Physician: Prateek Quinteros, Orthopedic Surgery, Encounter Date: 10/08/2022 Results Created Date Observation Date Name Description Value Unit Range Abnormal Flag Note LastModifiedBy Organization Detail LastModifiedTime 10/09/1910/08/2022 [id number] VLT results [facility] [address] [place] [place] [address] XRay Repor t Proce dure( s): XR knee LT 3V Patie nt: Camacho Edwards w,Iri s Date of Servi ce: 10/08 : [birth year]30 MR#: [id number] Age/S ex: 37 / F Acct: [id number] ADM Date: 10/[address]: Austen lima M.D. Order ing Physi bessy: Elie Jules M.D. Acces lesley Numbe r(s): [id number] cc: Ramos Maldonado cha, M.D.; Elie Jules M.D. Exami natio n: Left knee 3 views Acces lesley: [id number] Exam Date/ Time: 023 10:30 AM Reaso n For Exam: Poppi ng sensa tion in the left walki ng. Pain later al to the chew la. Joe rison : None Techn ique: 3 views of the left knee were obtai shital. Findi ngs: No joint effus ion. Later al chew lar spur. Tibia l plate au and femor al condy le spurr ing in the later al joe rtmen t. No fract ure or dislo catio n. No destr uctiv e osseo us lesio n. No radio paque forei gn body. ===== 0012 XR/XR knee LT 3V IMPRE SSION :==== = 1. Mild osteo arthr shayy segura with no acute osseo us abnor malit y by plain film evalu ation Elect larry watkins Clementine d By: Abelino goel MD on 023 11:18 AM Dicta horacio By: Abelino Riley M.D. Clementine d By: 10/08 DD/DT : 10/08 TD/TT : Trans cript ionis t: Not Available [facility] (Rad) [address] [place], [address], 10/12/2022 19:18:58 06/13/1906/11/2022 XR, foot Examin ation: X-ray RIGHT foot 3 views Exam time: 06/12/19 Clinic al histor y: Right foot pain. Compar adama: None. Techni que: AP, obliqu e and latera l views of the RIGHT foot were obtain ed. Findin gs: No eviden ce of fractu re, disloc ation or gross bone destru ction. No remark able arthri tic change . Calcan eal enthes ophyte . IMPRES LESLEY: 1. No acute bony abnorm ality. Electr onical ly Signed By: Lan Hollingsworth MD on 06/13/19 8:53 AM READ BY: LAN HOLLINGSWORTH Date: 2022 08:53 [email or web address] [facility] ([facility]) [address] [place], [address], 12/08/2022 11:14:32 10/09/1910/08/2022 XR, knee, 3 view No observ ation record ed. dschwarze [facility] [address] [place], [address], 10/08/2022 13:21:58 10/14/1910/08/2022 ftb [facility] [address] [place] [address] XRay Report Proced ure(s) : XR knee LT 3V Patien t: Lacey Tomlinson Date of Servic e: : 1985 MR#: [id number] Age/Se x: 37 / F Acct:T [id number] ADM Date:[address]: Prateek gaitan M.D. Orderi ng Physic norman: Freddy Laura M.D. Access ion Number (s): [id number] cc: Blas Khalil M.D.; Freddy Laura M.D. Examin ation: Left knee 3 views Access ion: [id number] Exam Date/T earl: 10/09/19 10:30 AM Reason For Exam: Poppin g sensat ion in the left walkin g. Pain latera l to the patell a. Compar adama: None Techni que: 3 views of the left knee were obtain ed. Findin gs: No joint effusi on. Latera l patell ar spur. Tibial platea u and femora l condyl e spurri ng in the latera l compar tment. No fractu re or disloc ation. No destru ctive osseou s lesion . No radiop aque foreig n body. ===== 012 XR/XR knee LT 3V IMPRES LESLEY:= ==== 1. Mild osteoa rthrit ic change s with no acute osseou s abnorm ality by plain film evalua tion Electr onical ly Signed By: Mazin caro MD on 10/09/19 11:18 AM Dictat ed By: Lorene Terry M.D. Signed By: 8 DD/DT: 1117 TD/TT: Transc riptio nist: dschwarze [facility] [address] [place], [address], 10/15/2022 12:39:28 10/14/1910/08/2022 ftb [facility] [address] [facility] [place] [address] XRay Report Proced ure(s) : XR knee LT 3V Patien t: Lacey Tomlinson Date of Servic e: : 1985 MR#: [id number] Age/Se x: 37 / F Acct:T [id number] ADM Date:[address]: Prateek gaitan M.D. Orderi ng Physic norman: Freddy Laura M.D. Access ion Number (s): [id number] cc: Blas Khalil M.D.; Freddy Laura M.D. Examin ation: Left knee 3 views Access ion: [id number] Exam Date/T earl: 10/09/19 10:30 AM Reason For Exam: Poppin g sensat ion in the left walkin g. Pain latera l to the patell a. Compar adama: None Techni que: 3 views of the left knee were obtain ed. Findin gs: No joint effusi on. Latera l patell ar spur. Tibial platea u and femora l condyl e spurri ng in the latera l compar tment. No fractu re or disloc ation. No destru ctive osseou s lesion . No radiop aque foreig n body. ===== 012 XR/XR knee LT 3V IMPRES LESLEY:= ==== 1. Mild osteoa rthrit ic change s with no acute osseou s abnorm ality by plain film evalua tion Electr onical ly Signed By: Mazin caro MD on 10/09/19 11:18 AM Dictat ed By: Lorene Terry M.D. Signed By: 1118 DD/DT: 1117 TD/TT: Transc riptio nist: dschwarze [facility] [address] [place], [address], 10/15/2022 12:39:29 12/02/1910/08/2022 ftb [facility] [address] [facility] [place] [address] XRay Report Proced ure(s) : XR knee LT 3V Patien t: Camacho Lacey Larsen Date of Servic e: : 1985 MR#: [id number] Age/Se x: 37 / F Acct:T [id number] ADM Date:[address]: Prateek gaitan M.D. Orderi ng Physic norman: Freddy Laura M.D. Access ion Number (s): [id number] cc: Blas Khalil M.D.; Freddy Laura M.D. Examin ation: Left knee 3 views Access ion: [id number] Exam Date/T earl: 10/09/19 10:30 AM Reason For Exam: Poppin g sensat ion in the left walkin g. Pain latera l to the patell a. Compar adama: None Techni que: 3 views of the left knee were obtain ed. Findin gs: No joint effusi on. Latera l patell ar spur. Tibial platea u and femora l condyl e spurri ng in the latera l compar tment. No fractu re or disloc ation. No destru ctive osseou s lesion . No radiop aque foreig n body. ===== 012 XR/XR knee LT 3V IMPRES LESLEY:= ==== 1. Mild osteoa rthrit ic change s with no acute osseou s abnorm ality by plain film evalua tion Electr onical ly Signed By: Mazin caro MD on 10/09/19 11:18 AM Dictat ed By: Lorene Terry M.D. Signed By: 1118 DD/DT: 1116 TD/TT: Transc riptio nist: [facility] ([facility]) [address], [place], [address], 12/03/2022 11:26:08 Result Notes None recorded. Procedures Surgical History Date Name Laterality Status Provider Name and Address Organization Details Recorded Time 10/09/19 Left Arthrocentesis Major Joint completed Prateek Quinteros MD [address], [place], [address], [place] [facility] 10/08/2022 12:31:25 10/08/19 23 Injection completed ALAN JAEGER DPM [address], [place], [address], [facility] 10/07/2022 11:13:22 08/26/19 23 Injection completed ALAN JAEGER DPM [address], [place], [address], [place] [facility] 08/25/2022 16:13:21 06/26/19 23 Injection completed ALAN JAEGER DPM [address], [place], [address], [place] [facility] 06/25/2022 11:21:48 06/12/19 23 Injection completed ALAN JAEGER DPM [address], [place], [address], [facility] - [facility] 06/11/2022 16:16:37 Imaging Results Imaging Date Name Status LastModified by Organiz ation Details LastModified Time 06/11/2022 XR, foot [email or web address] [address], [place], [address], 12/08/2022 11:14:32 10/08/2022 XR, knee, 3 view completed [facility] [address] [place], [address], 10/08/2022 13:21:58 10/08/2022 ftb completed [facility] ([facility]) [address], [place], [address], 10/15/2022 12:39:28 10/08/2022 ftb completed [facility]schwarze [facility] [address] [place], [address], 10/15/2022 12:39:29 10/08/2022 ftb completed [facility]warze [facility] [address] [place], [address], 12/03/2022 11:26:08 Procedure Notes None recorded. Medical Equipment None Reported. Allergies Allergen ID Allergen Name Allergen Category Reaction Reaction Severity Criticality Documentation Date Start Date Code Code System Note Provider Name and Address Organization Details Recorded Time 434187 penicilli n G Not available hives severe high 10/08/2022 7980 RxNorm Not Available Not Available Not Available Medications Name Sig Start Date Stop Date Status Note LastModified by Organization Details LastModified Time Mirena 21 mcg/24 hr (up to 8 years) 52 mg intrauterin e device 06/25 completed Not Available Not Available Not Available fluconazole 150 mg tablet active Not Available Not Available Not Available metronidazo le 0.75 % (37.5 mg/5 gram) vaginal gel INSERT 1 APPLICATO RFUL VAGINALLY AT BEDTIME FOR 5 DAYS 06/25 completed Not Available Not Available Not Available prednisone 5 mg tablet TAKE 6 TABLETS BY MOUTH ON THE FIRST DAY, 5 TABS THE NEXT DAY, 4 TABS THE FOLLOWING DAY, 3 TABS, THEN 2 TABS THEN 1 TAB 06/25 completed Not Available Not Available Not Available metformin 850 mg tablet active Not Available Not Available Not Available acetaminoph en 300 mg-codeine 30 mg tablet TAKE 1 TABLET BY MOUTH EVERY 6 HOURS NEEDED FOR PAIN 06/25 completed Not Available Not Available Not Available Kenalog 40 mg/mL suspension for injection Take 0.25 mL by injection route. 2022 active Not Available Not Available Not Avai lable oxycodone-a cetaminophe n 5 mg-325 mg tablet TAKE 1 TABLET BY MOUTH EVERY 4 HOURS NEEDED FOR PAIN 06/25 completed Not Available Not Available Not Available methocarbam ol 750 mg tablet TAKE 1 TABLET BY MOUTH AT BEDTIME active Not Available Not Available No t Available erythromyci n 5 mg/gram (0.5 %) eye ointment APPLY A THIN RIBBON TO INCISIONS AND INTO BOTH EYES FOUR TIMES DAILY AT BEDTIME active Not Available Not Available No t Available nystatin 100,000 unit/gram topical cream active Not Available Not Available Not Available lidocaine 5 % topical patch USE 1 PATCH EXTERNALL Y ONCE DAILY. LEAVE ON MOST PAINFUL AREA FOR UP TO 12 HOURS active Not Available Not Available No t Available diclofenac sodium 75 mg tablet,uziel yed release Take 1 tablet twice a day by oral route with meals for 30 days. 2022 active Not Available Not Available Not Avai lable nystatin 100,000 unit/gram topical powder active Not Available Not Available Not Available ibuprofen 600 mg tablet active Not Available Not Available Not Available methylpredn isolone 4 mg tablets in a dose pack TAKE BY MOUTH DIRECTED ON INSIDE OF PACKAGE active Not Available Not Available No t Available albuterol sulfate HFA 90 mcg/actuati on aerosol inhaler INHALE 1 PUFF BY MOUTH EVERY 4 HOURS NEEDED FOR SHORTNESS OF BREATH FOR WHEEZING active Not Available Not Available No t Available neomycin 3.5 mg/g-polymy vonnie B 10,000 unit/g-dexa meth 0.1 % eye oint APPLY OINTMENT TO LACRIMAL GLANDS OF BOTH EYES 3 TIMES A DAY 06/25 completed Not Available Not Available Not Available medroxyprog esterone 150 mg/mL intramuscul ar syringe ADMINISTE R 1 ML IN THE MUSCLE EVERY 3 MONTHS active Not Available Not Available No t Available cholecalcif adrienne (vitamin D3) 1,250 mcg (50,000 unit) capsule TAKE 1 CAPSULE BY MOUTH ONCE A WEEK FOR 8 WEEKS 06/25 completed Not Available Not Available Not Available Vitals Date Recorded Body weight Body temperature Pain severity - 0-10 verbal numeric rating [Score] - Reported Heart rate Body mass index (BMI) Body height Systolic blood pressure Diastolic blood pressure Provider Name and Address Organization Details Last Updated DateTime 3 998324. 01 g 97.9 [degF] 0 87 /min 47.8 kg/m2 165.1 cm 125 mm[Hg] 78 mm[Hg] Chilango Oseguera [place] [facility] 3 15:16:44 Date Recorded Body height Body mass index (BMI) Body weight Pain severity - 0-10 verbal numeric rating [Score] - Reported Body temperature Heart rate Systolic blood pressure Diastolic blood pressure Provider Name and Address Organization Details Last Updated DateTime 3 165.1 cm 47.6 kg/m2 247236. 42 g 9 98.2 [degF] 84 /min 131 mm[Hg] 91 mm[Hg] Rody Gipson LPN [facility] 3 10:59:52 Date Recorded Body height Heart rate Body temperature Body mass index (BMI) Body weight Systolic blood pressure Diastolic blood pressure Provider Name and Address Organization Details Last Updated DateTime 3 165.1 cm 77 /min 98 [degF] 47.6 kg/m2 820631. 42 g 132 mm[Hg] 87 mm[Hg] Mauro Lynch LPN [facility] 3 16:03:28 Date Recorded Body height Body mass index (BMI) Body weight Heart rate Body temperature Pain severity - 0-10 verbal numeric rating [Score] - Reported Systolic blood pressure Diastolic blood pressure Provider Name and Address Organization Details Last Updated DateTime 3 165.1 cm 46.8 kg/m2 287543. 46 g 77 /min 98.6 [degF] 10 117 mm[Hg] 78 mm[Hg] Iván Hou MA [facility] 3 10:50:46 Date Recorded Body height Body mass index (BMI) Body weight Body temperature Heart rate Systolic blood pressure Diastolic blood pressure Provider Name and Address Organization Details Last Updated DateTime 3 165.1 cm 47 kg/m2 268191. 77 g 98.6 [degF] 80 /min 105 mm[Hg] 68 mm[Hg] Agapito Rivera MA [facility] 3 11:59:24 Social History Question Answer Notes LastModified by Organizat ion Details LastModified Time Tobacco Smoking Status Current Every Day Smoker jo Gipson LPN [facility], [facility] 06/25/2022 10:57:57 Do You Have An Advance Directive? No Krystal Sauer Spouse estefania Information not available 06/25/2022 Do You Have A Medical Power Of Graduate Internship? No Krystal Sauer Spouse rehanan Information not available 06/25/2022 What Was The Date Of Your Most Recent Tobacco Screening? 10/08/2022 [email or web address] Information not available 10/08/2022 Sex: Unknown Functional Status None recorded. Mental Status None recorded. Family History Nothing Reported. Medical History No medical history recorded. Gynecological HistoryNo gynecological history recorded. Obstetrics History GPAL:G 0 P 0 0 0 0 Past Encounters Encounter ID Performer Location Encounter Start Date Encounter Closed Date Diagnosis/Indication Diagnosis SNOMED-CT Code Diagnosis ICD10 Code Diagnosis Note [id number] ALAN JAEGER DPM [facility] [address] [place] [address] 06/11/2022 15:07:55 06/18/2022 08:50:59 Pain in right foot [id number] 14009 M79.671 Lesion of right plantar nerve 6982005109 79210 G57.61 The patient was educated about how neuromas are created and worsen. The patient was given a strong recommenda tion for orthotics with a met pad to reduce pressure to the forefoot. The patient was also offered an injection to help reduce the inflammati on around the nerve in the right 3rd interspace . The patient was told to wear proper shoes/orth otics and to reduce stress to the area. The patient was also given informatio n regarding NSAIDS and all surgical options as needed. Metatarsalgia 27174624 M 77.41 M77.42 The patient was educated regarding how to mechanical ly stabilize and offload the patient's deformity. The patient was given education about shoe recommenda tions designed to further offload and take pressure off of the prominent plantar deformity. The patient was educated about custom orthotics and how appropriat e shoes and orthotics can prevent further worsening of the deformity. The patient was educated about how bad shoe habits can worsen the condition. NSAIDS, P.T., injections and other conservati ve treatments were discussed. Lesion of left plantar nerve 2596662662 34186 G57.62 The patient was educated about how neuromas are created and worsen. The patient was given a strong recommenda tion for orthotics with a met pad to reduce pressure to the forefoot. The patient was also offered an injection to help reduce the inflammati on around the nerve in the left 3rd interspace . The patient was told to wear proper shoes/orth otics and to reduce stress to the area. The patient was also given informatio n regarding NSAIDS and all surgical options as needed. Pain in left foot 744744 0492 46445 M79.391 [id number] ALAN JAEGER DPM [facility] [address] [place] [address] 06/25/2022 10:37:05 06/26/2022 10:22:21 Pain in right foot 3813538276 85541 M79.671 Lesion of right plantar nerve 5952270214 90577 G57.61 The patient was educated about how neuromas are created and worsen. The patient was given a strong recommenda tion for orthotics with a met pad to reduce pressure to the forefoot. The patient was also offered an injection to help reduce the inflammati on around the nerve in the right 3rd interspace . The patient was told to wear proper shoes/orth otics and to reduce stress to the area. The patient was also given informatio n regarding NSAIDS and all surgical options as needed. Metatarsalgia 20610614 M 77.41 M77.42 The patient was educated regarding how to mechanical ly stabilize and offload the patient's deformity. The patient was given education about shoe recommenda tions designed to further offload and take pressure off of the prominent plantar deformity. The patient was educated about custom orthotics and how appropriat e shoes and orthotics can prevent further worsening of the deformity. The patient was educated about how bad shoe habits can worsen the condition. NSAIDS, P.T., injections and other conservati ve treatments were discussed. Lesion of left plantar nerve 1027861909 71745 G57.62 The patient was educated about how neuromas are created and worsen. The patient was given a strong recommenda tion for orthotics with a met pad to reduce pressure to the forefoot. The patient was also offered an injection to help reduce the inflammati on around the nerve in the left 3rd interspace . The patient was told to wear proper shoes/orth otics and to reduce stress to the area. The patient was also given informatio n regarding NSAIDS and all surgical options as needed. Pain in left foot 349760 1936 79630 M79.522 [id number] ALAN JAEGER DPM [facility] [address] [place] [address] 08/25/2022 14:40:27 08/26/2022 07:46:18 Pain in right foot 3160672688 19257 M79.671 Lesion of right plantar nerve 1645544246 43081 G57.61 The patient was educated about how neuromas are created and worsen. The patient was given a strong recommenda tion for orthotics with a met pad to reduce pressure to the forefoot. The patient was also offered an injection to help reduce the inflammati on around the nerve in the right 3rd interspace . The patient was told to wear proper shoes/orth otics and to reduce stress to the area. The patient was also given informatio n regarding NSAIDS and all surgical options as needed. Metatarsalgia 88300649 M 77.41 M77.42 The patient was educated regarding how to mechanical ly stabilize and offload the patient's deformity. The patient was given education about shoe recommenda tions designed to further offload and take pressure off of the prominent plantar deformity. The patient was educated about custom orthotics and how appropriat e shoes and orthotics can prevent further worsening of the deformity. The patient was educated about how bad shoe habits can worsen the condition. NSAIDS, P.T., injections and other conservati ve treatments were discussed. Lesion of left plantar nerve 8063976476 18732 G57.62 The patient was educated about how neuromas are created and worsen. The patient was given a strong recommenda tion for orthotics with a met pad to reduce pressure to the forefoot. The patient was also offered an injection to help reduce the inflammati on around the nerve in the left 3rd interspace . The patient was told to wear proper shoes/orth otics and to reduce stress to the area. The patient was also given informatio n regarding NSAIDS and all surgical options as needed. Pain in left foot 358755 8732 60039 M79.537 [id number] [facility] [address] [place] [address] 10/07/2022 10:24:02 10/07/2022 14:31:50 Pain in right foot 3639731216 10005 M79.671 Lesion of right plantar nerve 2541825758 80307 G57.61 The patient was educated about how neuromas are created and worsen. The patient was given a strong recommenda tion for orthotics with a met pad to reduce pressure to the forefoot. The patient was also offered an injection to help reduce the inflammati on around the nerve in the right 3rd interspace . The patient was told to wear proper shoes/orth otics and to reduce stress to the area. The patient was also given informatio n regarding NSAIDS and all surgical options as needed. Metatarsalgia 95178599 M 77.41 M77.42 The patient was educated regarding how to mechanical ly stabilize and offload the patient's deformity. The patient was given education about shoe recommenda tions designed to further offload and take pressure off of the prominent plantar deformity. The patient was educated about custom orthotics and how appropriat e shoes and orthotics can prevent further worsening of the deformity. The patient was educated about how bad shoe habits can worsen the condition. NSAIDS, P.T., injections and other conservati ve treatments were discussed. Lesion of left plantar nerve 7690902784 57321 G57.62 The patient was educated about how neuromas are created and worsen. The patient was given a strong recommenda tion for orthotics with a met pad to reduce pressure to the forefoot. The patient was also offered an injection to help reduce the inflammati on around the nerve in the left 3rd interspace . The patient was told to wear proper shoes/orth otics and to reduce stress to the area. The patient was also given informatio n regarding NSAIDS and all surgical options as needed. Pain in left foot [id number] M79.570 [id number] Prateek Quinteros MD [facility] [address] [place] [address] 10/08/2022 11:18:16 10/08/2022 14:07:16 Osteoarthritis of left knee joint [id number] M17.12 Chondromal acia of left patella [id number] M22.42 Derangemen t of posterior horn of medial meniscus of left knee [id number] M23.322 Health Concerns Section Related Observation LastModified by Organization Detai ls LastModified Time None Recorded Concern Status LastModified by Organization Details LastModified Time None Recorded Advance Directives Directive N: krystal sauer spouse Payers Encounter Date Sequence Insurance Name Policy Number Policy Blood Covered Member ID Blood Member ID Guarantor Name 06/11/2022 1 [facility] ON OR AFTER 09/05/20 (MEDICAID REPLACEMENT - HMO) Lacey Singhas [id number] Lacey Zumbrota 06/25/2022 1 [facility] ON OR AFTER 09/05/20 (MEDICAID REPLACEMENT - HMO) Lacey Sauer [id number] Lacey Camacho 08/25/2022 1 [facility] ON OR AFTER 09/05/20 (MEDICAID REPLACEMENT - HMO) Lacey Sauer [id number] Lacey Zumbrota 10/07/2022 1 [facility] ON OR AFTER 09/05/20 (MEDICAID REPLACEMENT - HMO) Lacey Sauer [id number] Lacey Camacho 10/08/2022 1 [facility] ON OR AFTER 09/05/20 (MEDICAID REPLACEMENT - HMO) Lacey Sauer [id number] Lacey Sauer Notes Date Note Type Note Provider Name and Address Organization Details Recorded Time 06/11/2022 text/html Patient presents c/o sharp pain in her b/l ballof foot (right>left) graded 10/10 beginning 3 months ago after a long day of walking. Patient relates pain greatest with walking and pain is relieved by rest Denies nausea, vomiting, fever, chills, shortness of breath, chest pain, difficulty breathing, calf pain. Patient denies thickened toenails, toe nail changes, skin changes on lower legs, tingling and numbness in toes and feet, and reports ball of foot joint pain and sharp pain when walking ALAN JAEGER DPM [address] [place], [address], [facility] 06/11/2022 17:02:42 06/25/2022 text/html Patient presents f/u sharp pain in her b/l ball of foot (right>left) initially graded 10/10 beginning 10 march 2022 after a long day of walking that is today graded 9/10. Patient relates pain greatest with walking and pain is relieved by rest Denies nausea, vomiting, fever, chills, shortness of breath, chest pain, difficulty breathing, calf pain. Patient denies thickened toenails, toe nail changes, skin changes on lower legs, tingling and numbness in toes and feet, and reports ball of foot joint pain and sharp pain when walking ALAN JAEGER DPM [address] [place], [address], [facility] 06/25/2022 11:23:16 08/25/2022 text/html Patient presents f/u sharp pain in her b/l ball of foot (right>left) initially graded 10/10 beginning 10 march 2022 after a long day of walking that is today graded 8-10/10. Patient relates pain greatest with walking and pain is relieved by rest Denies nausea, vomiting, fever, chills, shortness of breath, chest pain, difficulty breathing, calf pain. Patient denies thickened toenails, toe nail changes, skin changes on lower legs, tingling and numbness in toes and feet, and reports ball of foot joint pain and sharp pain when walking ALAN JAEGER DPM [address] [place], [address], [facility] 08/25/2022 16:14:27 10/07/2022 text/html Patient presents f/u sharp pain in her b/l ball of foot (right>left) initially graded 10/10 beginning 10 march 2022 after a long day of walking that is today graded 7-10/10. Patient relates pain greatest with walking and pain is relieved by rest Denies nausea, vomiting, fever, chills, shortness of breath, chest pain, difficulty breathing, calf pain. Patient denies thickened toenails, toe nail changes, skin changes on lower legs, tingling and numbness in toes and feet, and reports ball of foot joint pain and sharp pain when walking ALAN JAEGER DPM [address] [place], [address], [facility] 10/07/2022 11:30:31 10/08/2022 text/html KneeReported bypatient.Location :left; anterior; lateral; deep Quality:aching; throbbing; deep; constant Severity:moderate Duration:continuou s since onset Timing:acute Context:twisting; donning clothes at home Alleviating Factors:rest; elevation Aggravating Factors:standing; walking; bending/squatting; weight bearing; going from sit to stand; upstairs; downstairs; daytime; nighttime Associated Symptoms:no numbness; no tingling; no redness; no warmth; no ecchymosis; no buckling; no instability; no drainage; no fever; no chills; no weight loss; no change in bowel/bladder habits;weakness;sw elling;catching/lo cking;popping/clic stephon;grinding;radi ation down leg Previous Surgery:none Prior Imaging:none Previous Injections:none Previous PT:noneNotes:Neg PMH DOI around .23 Prateek Quinteros MD [address] [place], [address], [facility] 10/08/2022 12:40:36 OBGyn Episode No OBEpisode recorded.
[2024-05-18 19:18] VITALS: BP 131/79; PULSE 85; RESP 18; TEMP 36.2; O2SAT 100
--- NOTE | 2024-05-18 19:25 | ED_ITS ---
HPI - Extremity Injury (Upper) General Chief Complaint: Extremity Injury, Upper Stated Complaint: RT Hand injury Time Seen by Provider: 05/18/24 19:25 Source: patient Mode of arrival: ambulatory Limitations: no limitations History of Present Illness HPI narrative: 39-year-old female presents with complaint of right hand pain Since yesterday morning. Patient states that she was trying to get spare tire out of her trunk and the piece that covers tire fell down on to right hand crushing it. Patient reports pain with movement. Has worked the past 2 days through pain. Wants to make sure she does not have a fracture. Range of motion decreased due to pain, distal neurovascularly intact. All systems reviewed and negative except as noted above. Related Data Home Medications ?Medication ?Instructions ?Recorded ?Confirmed ?Last Taken ?Type diclofenac sodium 75 mg 75 mg PO BID 07/19/23 04/12/24 Unknown History tablet,delayed release Allergies Allergy/AdvReac Type Severity Reaction Status Date / Time Penicillins Allergy Mild Unknown Verified 05/18/24 19:29 Fish Containing Products AdvReac Intermediate Swelling Verified 05/18/24 19:29 Review of Systems Review of Systems: CONSTITUTIONAL: Denies fever, chills, or sweats. EYES: Denies visual changes, redness, or discharge. ENT: Denies rhinorrhea, congestion, sore throat, or otalgia. CARDIOVASCULAR: Denies chest pain, palpitations, or edema. RESPIRATORY: Denies cough or dyspnea. GASTROINTESTINAL: Denies abdominal pain, nausea, vomiting, or diarrhea. GENITOURINARY: Denies dysuria or hematuria. SKIN: Denies rash or itching. MUSCULOSKELETAL: Denies back pain, joint pain, or myalgia. Reports right hand pain. NEUROLOGIC: Denies headache, numbness, or weakness. PSYCHIATRIC: Denies anxiety or depression. All other systems reviewed are negative, except as documented in HPI. [facility] Past Medical History Medical History Shortness of Breath Allergies Surgical History Surgical History H/O wisdom tooth extraction Hx of cholecystectomy 03/06/2010 Hx of non-cataract eye surgery Family History Family History Grandparent Cancer pancreatic Hypertension Mother Hypertension Cerebrovascular accident Thyroid disorder Diabetes mellitus Social History Social History Smoking status: Never smoker (Never tobacco smoker - daily marijuana smoking) Alcohol intake: current Substance use: never Lack of Transportation: No Lack of Food: Never True Current Housing: I Have Housing Concerned About Future Housing: No Difficulty Paying Gas/Electric Bills: YES Difficulty Paying for Meds: No Currently Unemployed: No Education: Trade/Vocational Certificate Difficulty w/ Childcare or Family Care: No Living arrangements: with family Occupation/Education: occupation 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 There is no relevant family history pertinent to the presenting complaint. Exam Narrative: GENERAL: This is a well-nourished, well-developed patient, in no apparent distress. HEAD: normocephalic, atraumatic. EYES: PERRL. Sclera clear/white. Vision is grossly intact. EARS: External ears normal NOSE: External nose normal NECK: Neck supple, non-tender without lymphadenopathy, masses or thyromegaly. CARDIOVASCULAR: Regular rate and rhythm without murmurs, gallops, or rubs. RESPIRATORY: Clear to auscultation. Breath sounds equal bilaterally. No wheezes, rales, or rhonchi. SKIN: warm, Dry, intact with no suspicious lesions or rash, good texture and turgor. NEURO: awake, alert, and oriented to person, place and time. There were no obvious focal neurologic abnormalities. EXTREMITIES: Tenderness to proximal aspect of 2nd and 3rd metacarpal without deformity. Small bruise noted. No significant swelling. CMS intact Course Course Level of Care: Express Care Visit Vital Signs Vital signs: Vital Signs Temperature 36.2 C L 05/18/24 19:18 Pulse Rate 85 05/18/24 19:18 Respiratory Rate 18 05/18/24 19:18 Blood Pressure 131/79 05/18/24 19:18 Pulse Oximetry 100 05/18/24 19:18 Oxygen Delivery Room Air 05/18/24 19:18 Temperature 36.2 C L 05/18/24 19:18 Pulse Rate 85 05/18/24 19:18 Respiratory Rate 18 05/18/24 19:18 Blood Pressure 131/79 05/18/24 19:18 Pulse Oximetry 100 05/18/24 19:18 Oxygen Delivery Room Air 05/18/24 19:18 reviewed MDM - Extremity Injury (Upper) MDM Narrative Medical decision making narrative: X-ray of right hand negative for fracture. Discussed results with Patient. Recommend ibuprofen or Tylenol. Rest, ice. Please be advised this is a medical document. It is intended for [id number] communication. It is written in medical language and may contain unfamiliar abbreviations or verbiage. Medical documents are intended to carry relevant information, facts as evident, and the clinical opinion of the practitioner at the time of the encounter. This report may have been done utilizing a voice recognition system. Attempts have been made to correct errors. However, there may be uncorrected grammatical, spelling, and recognition errors present. The file time of this note does not necessarily represent the time of service. Differential Diagnosis Differential diagnosis: Likely fracture of hand and other ( Right hand contusion) Imaging Data My impression: Agree with radiologist Radiologist's impression: XR hand RT min 3V Ordering provider: Fabiola Tapia NP History: . pain 2nd and 3rd proximal metacarpal . Comparison: None. FINDINGS: BONES: No acute fracture or dislocation. JOINT SPACES: Normal. SOFT TISSUES: Normal. IMPRESSION: No acute osseous abnormality right hand. Discharge Plan Discharge Clinical Impression: Contusion of dorsum of right hand Patient Disposition: Home, Self-Care Condition: Stable Instructions: Contusion in Adults (ED) Additional Instructions: the x-ray of your right hand was negative for fracture. Take ibuprofen or Tylenol every 6-8 hours as needed for pain. Elevate when at rest. Follow-up with your primary care physician if right hand pain is not improving in the next 3-4 weeks. Patient Language: Swazi Prescriptions: No Action lidocaine 5 % adhesive patch,medicated 1 patch topical DAILY Qty: 30 3RF Rx Instructions: leave on most painful area for up to 12 hrs diclofenac sodium 75 mg tablet,delayed release (DR/EC) 75 mg PO BID methocarbamol 750 mg tablet 1,500 mg PO TID Qty: 90 2RF hmiohawripl-lpneyicfe-vyvkztuv 200-62.5-25 mcg blister with device 1 inh inhalation DAILY Qty: 60 3RF metformin 500 mg tablet extended release 24 hr 500 mg PO QPM Qty: 90 1RF albuterol sulfate 90 mcg/actuation HFA aerosol inhaler 1 puff inhalation Q4H PRN (Reason: shortness of breath or wheezing) Qty: 8.5 5RF medroxyprogesterone [Depo-Provera] 150 mg/mL syringe 150 mg IM [id number] Qty: 1 0RF gabapentin 100 mg capsule See Rx Instructions .ROUTE .COMPLEX Qty: 90 0RF Dose Instruction: TAKE 1 CAPSULE BY MOUTH THREE TIMES DAILY Rx Instructions: TAKE 1 CAPSULE BY MOUTH THREE TIMES DAILY Follow-up/Referrals: Becky Momin APRN [Primary Care Provider] - Time of Disposition: 20:02
== END 2024-05-18 20:05 | disposition home or self-care (01) ==
PROVIDERS: Emergency Provider Nurse Practitioner Family; PCP Nurse Practitioner Family
DX: S60.221A Contusion of right hand, initial encounter (principal); W20.8XXA Other cause of strike by thrown, projected or falling object, initial encounter
CPT/HCPCS: 73130; 99213; G0463

== ENCOUNTER 2024-06-15 13:55 | Outpatient (CLI) | payer OTHER, SELFPAY ==
--- NOTE | ~2024-06-15 | CT_ITS ---
CT Scan of the Chest without Contrast: Clinical Indication: Pulmonary nodule Technique: Contiguous sections were acquired throughout the chest without intravenous contrast. Dose reduction technique was used on this scan by utilizing automated exposure control and iterative recon struction technique. The dose-length product (DLP) was 178.45 mGy-cm. COMPARISON: 12/16/2023 Findings: There is no evidence of any significant mediastinal, hilar or axillary lymphadenopathy. The mediastin al soft tissues appear normal. There is no evidence of pleural or pericardial effusion. There is somewhat patchy areas of chronic interstitial change and groundglass opacity scattered in th e lungs, especially in the upper lobes anteriorly and in the lower lobes in the infrahilar regions. F indings are essentially stable from prior exam. Images through the upper abdomen reveal no abnormalities. Impression: Stable patchy areas of interstitial change and groundglass opacity in the lungs. Findings could refle ct chronic interstitial disease or other chronic postinflammatory change versus possibly chronic pneu monia. Reviewed, dictated and finalized at location . Impression: Stable patchy areas of interstitial change and groundglass opacity in the lungs . Findings could reflect chronic interstitial disease or other chronic postinfl ammatory change versus possibly chronic pneumonia.
--- OUTSIDE RECORDS SUMMARY | 2024-06-15 14:31 | XMS_ITS | Data Portability ---
Author Organization [facility] Address [address] [place] [address] Assessment No assessment recorded. Plan of Treatment Reminders Order Date Submit Date Provider Last Modified By Organization Details Last Modified Time Details Appointments None recorde d. Lab None recorde d. Referral physica l therapi st referra l 2022 023 [facility], [address] [place], [address], 3 09:41:25 Procedures None recorde d. Surgeries None recorde d. Imaging XR, foot 2022 023 SANDRA Not available 3 11:14:05 Medication Orders diclofe nac sodium 75 mg tablet, delayed release 2022 023 [facility], [address] [facility] [address], [place], [address], 3 12:40:16 Kenalog 40 mg/mL suspens ion for injecti on 2022 023 [email or web address] Not available 3 16:01:15 Kenalog 40 mg/mL suspens ion for injecti on 2022 023 [email or web address] Not available 3 12:16:16 diclofe nac sodium 75 mg tablet, delayed release 2022 023 [facility], [address] [facility] [address], [place], [address], 3 11:29:34 Kenalog 40 mg/mL suspens ion for injecti on 2022 023 [email or web address] Not available 3 11:12:06 Medrol (Jesus) 4 mg tablets in a dose pack 2022 023 [facility], [address] [place], [address], 3 16:20:36 diclofe nac sodium 75 mg tablet, delayed release 2022 023 [facility], [address] [facility] , [place], [address], 3 16:13:39 Kenalog 40 mg/mL suspens ion for injecti on 2022 023 fharry Not available 3 12:46:15 Medrol (Jesus) 4 mg tablets in a dose pack 2022 023 [facility], [address] [facility], [place], [address], 3 11:25:20 diclofe nac sodium 75 mg tablet, delayed release 2022 023 [facility], [address] [facility] , [place], [address], 3 11:22:43 Kenalog 40 mg/mL suspens ion for injecti on 2022 023 [email or web address] Not available 3 10:56:34 Medrol (Jesus) 4 mg tablets in a dose pack 2022 023 [email or web address] [facility], [address] [place], [address], 3 10:56:52 Patient TargetsNo targets recorded. Patient Instructions Encounter Date Encounter Id Patient Instructions Last Modified By Organization Details Last Modified Time 06/11/2022 [id number] metatarsalgia: care instructions fharry Not available 06/11/2022 17:01:20 06/25/2022 [id number] metatarsalgia: care instructions fharry Not available 06/25/2022 11:22:36 08/25/2022 [id number] metatarsalgia: care instructions fharry Not available 08/25/2022 16:13:32 10/07/2022 [id number] metatarsalgia: care instructions fharry Not available 10/07/2022 11:29:23 Reason for Referral Physical Therapist Referral for Osteoarthritis of left knee joint Referring Physician: Prateek Quinteros, Orthopedic Surgery, Encounter Date: 10/08/2022 Results Created Date Observation Date Name Description Value Unit Range Abnormal Flag Note LastModifiedBy Organization Detail LastModifiedTime 10/09/1910/08/2022 [id number] VLT results [facility] [address] [place] [address] XRay Repor t Proce dure( s): XR knee LT 3V Patie nt: Camacho Edwards w,Iri s Date of Servi ce: 10/08 : [birth year]30 MR#: [id number] Age/S ex: 37 / F Acct: [id number] ADM Date: 10/[address]: Austen lima M.D. Order ing Physi bessy: Elie Jules M.D. Acces lesley Numbe r(s): [id number] cc: Ramos Maldonado cha, M.D.; Elie Jules M.D. Exami natio n: Left knee 3 views Acces lesley: [id number] Exam Date/ Time: 023 10:30 AM [...] 023 11:18 AM Dicta horacio By: Abelino Riely M.D. Clementine d By: 10/08 DD/DT : 10/08 TD/TT : Trans cript ionis t: Not Available [facility] (Rad) [address] [place], [address], 10/12/2022 19:18:58 06/13/1906/11/2022 XR, foot Examin ation: [...] BY: LAN HOLLINGSWORTH Date: 2022 08:53 [email or web address] [facility] (Rad) [address] [place], [address], 12/08/2022 11:14:32 10/09/1910/08/2022 XR, knee, 3 view No observ ation record ed. dschwarze [facility] [address] [place], [address], 10/08/2022 13:21:58 10/14/1910/08/2022 ftb [facility] [address] [place] [address] XRay Report Proced ure(s) : XR knee LT 3V Patien t: Lacey Tomlinson Date of Servic e: : 1985 MR#: [id number] Age/Se x: 37 / F Acct:T [id number] ADM Date:[address]: Prateek gaitan M.D. Orderi ng Physic norman: Freddy Laura M.D. Access ion Number (s): [id number] cc: Blas Khalil M.D.; Freddy Laura M.D. Examin ation: Left knee 3 views Access ion: [id number] Exam Date/T earl: 10/09/19 10:30 AM Reason [...] riptio nist: dschwarze [facility] [address] [place], [address], 10/15/2022 12:39:28 10/14/1910/08/2022 ftb [facility] [address] [place] [address] XRay Report Proced ure(s) : XR knee LT 3V Patien t: Lacey Tomlinson Date of Servic e: : 1985 MR#: [id number] Age/Se x: 37 / F Acct:T [id number] ADM Date:[address]: Prateek gaitan M.D. Orderi ng Physic norman: Freddy Laura M.D. Access ion Number (s): [id number] cc: Blas Khalil M.D.; Freddy Laura M.D. Examin ation: Left knee 3 views Access ion: [id number] Exam Date/T earl: 10/09/19 10:30 AM Reason [...] DD/DT: 1117 TD/TT: Transc riptio nist: [facility] [address] [place], [address], 10/15/2022 12:39:29 12/02/1910/08/2022 ftb [facility] [address] [facility] [place] [address] XRay Report Proced ure(s) : XR knee LT 3V Patien t: Camacho Lacey Larsen Date of Servic e: : 1985 MR#: [id number] Age/Se x: 37 / F Acct:T [id number] ADM Date:[address]: Prateek gaitan M.D. Orderi ng Physic norman: Freddy Laura M.D. Access ion Number (s): [id number] cc: Blas Khalil M.D.; Freddy Laura M.D. Examin ation: Left knee 3 views Access ion: [id number] Exam Date/T earl: 10/09/19 10:30 AM Reason [...] 1118 DD/DT: 1116 TD/TT: Transc riptio nist: [facility] ([facility]) [address], [place], [address], 12/03/2022 11:26:08 Result Notes None recorded. Procedures Surgical History Date Name Laterality Status Provider Name and Address Organization Details Recorded Time 10/09/19 Left Arthrocentesis Major Joint completed Prateek Quinteros MD [address], [place], [address], [place] [facility] 10/08/2022 12:31:25 10/08/19 23 Injection completed ALAN JAEGER DPM [address], [place], [address], [place] [facility] 10/07/2022 11:13:22 08/26/19 23 Injection completed ALAN JAEGER DPM [address], [place], [address], [place] [facility] 08/25/2022 16:13:21 06/26/19 23 Injection completed ALAN JAEGER DPM [address], [place], [address], [place] [facility] 06/25/2022 11:21:48 06/12/19 23 Injection completed ALAN JAEGER DPM [address], [place], [address], [place] [facility] 06/11/2022 16:16:37 Imaging Results Imaging Date Name Status LastModified by Organiz ation Details LastModified Time 06/11/2022 XR, foot completed [email or web address] [facility] ([facility]) [address] [place], [address], 12/08/2022 11:14:32 10/08/2022 XR, knee, 3 view completed [facility] [address] [place], [address], 10/08/2022 13:21:58 10/08/2022 ftb completed [facility] (Rad) [address] [place], [address], 10/15/2022 12:39:28 10/08/2022 ftb completed dschwarze [facility] [address] [place], [address], 10/15/2022 12:39:29 10/08/2022 ftb completed dschwarze [facility] ([facility]) [address], [place], [address], 12/03/2022 11:26:08 Procedure Notes None recorded. Medical Equipment None Reported. Allergies Allergen ID Allergen Name Allergen Category Reaction Reaction Severity Criticality Documentation Date Start Date Code Code System Note Provider Name and Address Organization Details Recorded Time 824209 penicilli n G Not available hives severe [...] Address Organization Details Last Updated DateTime 3 293797. 01 g 97.9 [degF] 0 87 /min 47.8 kg/m2 165.1 cm 125 mm[Hg] 78 mm[Hg] Chilango Oseguera [place] [facility] 3 15:16:44 Date Recorded Body height Body mass index (BMI) Body weight Pain severity - 0-10 verbal numeric rating [Score] - Reported Body temperature Heart rate Systolic blood pressure Diastolic blood pressure Provider Name and Address Organization Details Last Updated DateTime 3 165.1 cm 47.6 kg/m2 715199. 42 g 9 98.2 [degF] 84 /min 131 mm[Hg] 91 mm[Hg] Rody Gipson LPN [facility] 3 10:59:52 Date Recorded Body height Heart rate Body temperature Body mass index (BMI) Body weight Systolic blood pressure Diastolic blood pressure Provider Name and Address Organization Details Last Updated DateTime 3 165.1 cm 77 /min 98 [degF] 47.6 kg/m2 384579. 42 g 132 mm[Hg] 87 mm[Hg] Mauro Lynch LPN [facility] 3 16:03:28 Date Recorded Body height Body mass index (BMI) Body weight Heart rate Body temperature Pain severity - 0-10 verbal numeric rating [Score] - Reported Systolic blood pressure Diastolic blood pressure Provider Name and Address Organization Details Last Updated DateTime 3 165.1 cm 46.8 kg/m2 266186. 46 g 77 /min 98.6 [degF] 10 117 mm[Hg] 78 mm[Hg] Iván Hou MA [facility] 3 10:50:46 Date Recorded Body height Body mass index (BMI) Body weight Body temperature Heart rate Systolic blood pressure Diastolic blood pressure Provider Name and Address Organization Details Last Updated DateTime 3 165.1 cm 47 kg/m2 015282. 77 g 98.6 [degF] 80 /min 105 mm[Hg] 68 mm[Hg] Agapito Rivera MA [facility] 3 11:59:24 Social History Question Answer Notes LastModified by Organizat ion Details LastModified Time Tobacco Smoking Status Current Every Day Smoker weed Rody Gipson LPN [facility], [facility] 06/25/2022 10:57:57 Do You Have An Advance Directive? No Krystal Sauer Spouse estefania Information not available 06/25/2022 Do You Have A Medical Power Of Reinforcing Steel Erector? No Jonathanjose Sauer Spouse [email or web address] Information not available 06/25/2022 What Was The [...] SNOMED-CT Code Diagnosis ICD10 Code Diagnosis Note [id number] ALAN JAEGER DPM [facility] [address] [place] [address] 06/11/2022 15:07:55 06/18/2022 08:50:59 Pain in right foot 0737903791 98662 M79.671 Lesion of right plantar nerve 8950000617 77492 G57.61 The patient was educated about how [...] and all surgical options as needed. Metatarsalgia 63494226 M 77.41 M77.42 The patient was educated [...] were discussed. Lesion of left plantar nerve 2165101645 01671 G57.62 The patient was educated about how [...] options as needed. Pain in left foot 354932 2801 28368 M79.355 [id number] [facility] [address] [place] [address] 06/25/2022 10:37:05 06/26/2022 10:22:21 Pain in right foot 5791293487 08028 M79.671 Lesion of right plantar nerve 1093489815 25378 G57.61 The patient was educated about how [...] and all surgical options as needed. Metatarsalgia 23978375 M 77.41 M77.42 The patient was educated [...] were discussed. Lesion of left plantar nerve 5425372761 14849 G57.62 The patient was educated about how [...] options as needed. Pain in left foot 103686 2307 49673 M79.554 [id number] ALAN JAEGER DPM [facility] [address] [place] [address] 08/25/2022 14:40:27 08/26/2022 07:46:18 Pain in right foot 0483498459 81002 M79.671 Lesion of right plantar nerve 5936605646 11045 G57.61 The patient was educated about how [...] and all surgical options as needed. Metatarsalgia 56159511 M 77.41 M77.42 The patient was educated [...] were discussed. Lesion of left plantar nerve 7993486803 92074 G57.62 The patient was educated about how [...] options as needed. Pain in left foot 877611 1853 31537 M79.895 [id number] ALAN JAEGER DPM [facility] [address] [address] 10/07/2022 10:24:02 10/07/2022 14:31:50 Pain in right foot 0971550213 14221 M79.671 Lesion of right plantar nerve 7961838896 61635 G57.61 The patient was educated about how [...] and all surgical options as needed. Metatarsalgia 63760248 M 77.41 M77.42 The patient was educated [...] were discussed. Lesion of left plantar nerve 4579739761 86760 G57.62 The patient was educated about how [...] options as needed. Pain in left foot 406445 4136 52507 M79.289 [id number] Prateek Quinteros MD [facility] [place] [address] 10/08/2022 11:18:16 10/08/2022 14:07:16 Osteoarthritis of left knee joint 9835988156 27993 M17.12 Chondromal acia of left patella 6415837329 61121 M22.42 Derangemen t of posterior horn of medial meniscus of left knee 6044857986 8206515 M23.322 Health Concerns Section Related Observation LastModified by Organization Detai ls LastModified Time None Recorded Concern Status LastModified by Organization Details LastModified Time None Recorded Advance Directives Directive N: krystal sauer spouse Payers Encounter Date Sequence Insurance Name Policy Number Policy Blood Covered Member ID Blood Member ID Guarantor Name 06/11/2022 1 [facility] ON OR AFTER 09/05/20 (MEDICAID REPLACEMENT - HMO) Lacey Camacho [id number] Lacey Camacho 06/25/2022 1 [facility] ON OR AFTER 20 (MEDICAID REPLACEMENT - HMO) Lacey Singhas [id number] Lacey Camacho 08/25/2022 1 [facility] - DOS ON OR AFTER 20 (MEDICAID REPLACEMENT - HMO) Lacey Singhas [id number] Lacey Camacho 10/07/2022 1 [facility] - DOS ON OR AFTER 20 (MEDICAID REPLACEMENT - HMO) Lacey Singhas [id number] Lacey Camacho 10/08/2022 1 [facility] ON OR AFTER 09/05/20 (MEDICAID REPLACEMENT - HMO) Lacey Singhas [id number] Lacey Singhas Notes Date Note Type Note Provider Name [...] pain and sharp pain when walking ALAN JAEGER, NITHIN [address] [place], [address], [facility] 06/11/2022 17:02:42 06/25/2022 text/html Patient [...] when walking ALAN JAEGER DPM [address] [place], [address], [facility] 06/25/2022 11:23:16 08/25/2022 text/html Patient presents f/u [...] when walking ALAN JAEGER DPM [address] [place], [address], [facility] 08/25/2022 16:14:27 10/07/2022 text/html Patient presents f/u [...] when walking ALAN JAEGER DPM [address] [place], [address], [facility] 10/07/2022 11:30:31 10/08/2022 text/html KneeReported bypatient.Location :left; [...] Previous PT:noneNotes:Neg PMH DOI around .23 Prateek Qiunteros MD [address] [place], [address], [facility] 10/08/2022 12:40:36 OBGyn Episode No OBEpisode recorded.
--- OUTSIDE RECORDS SUMMARY | 2024-06-15 14:31 | XMS_ITS | Clinical Summary ---
Author Organization [facility] Address [address] [facility] [place] [address] Care Team Providers Care Truck Assembler Name Role Phone Mac Diez DO Primary Care Provider [phone] Source Comments [facility],non-owned Affiliates and Associated Physician Practices is amultiple site organization consisting of ambulatory clinics and hospital sitesin [place], [place], [place] and [place]. This disclosure is being madepursuant to the Care Everywhere program and may not contain all information available regarding this patient. Last updated 17.[facility] Allergies Active Allergy Reactions Criticality Noted Date [...] VACCINE ( - 2023-2 5 season) 2023 DEPRESSION SCREENING 03/08/2024 INFLUENZA VACCINE (Season Ended) 2024 ZOSTER VACCINE (1 of 2) 2035 HIB [...] age to complete this topic Care Teams Truck Assembler Relationship Specialty Start Date End Date Mac Diez DO [address] [address] PCP - General Internal Medicine 03/18/22
--- OUTSIDE RECORDS SUMMARY | 2024-06-15 14:31 | XMS_ITS | Clinical Summary ---
Author Organization 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
--- OUTSIDE RECORDS SUMMARY | 2024-06-15 14:31 | XMS_ITS | Clinical Summary ---
Author Organization [facility] Address [facility] [place] [address] Care Team Providers Care Fare Register Repairer Name Role Phone Momin, [place] UNDERWEAR CUTTER Primary Care Provider [phone] Allergies Active Allergy Reactions Criticality Noted Date [...] 2023-2 5 season) 2023 01/14/2022, 10/30/2020, 10/09/2020 HPV Vaccines Aged Out No longer eligi [...] patient's age to complete this topic Insurance Care Teams Fare Register Repairer Relationship Specialty Start Date End Date Becky Momin NP [address] [place] [address] PCP - General Nurse Practitioner Family 09/29/22
== END 2024-06-15 13:56 | disposition home or self-care (01) ==
PROVIDERS: PCP Nurse Practitioner Family; Visit Provider Internal Medicine Pulmonary Disease
DX: R91.1 Solitary pulmonary nodule (principal); R91.8 Other nonspecific abnormal finding of lung field
CPT/HCPCS: 71250

== ENCOUNTER 2024-09-15 11:06 | Outpatient (CLI) | payer OTHER, SELFPAY ==
--- NOTE | ~2024-09-15 | XR_ITS ---
Lumbosacral Spine: AP and lateral views Clinical History: Pain Findings: The normal lordotic curve is maintained. The vertebral bodies and posterior elements are i ntact. The intervertebral disc spaces are preserved. The sacroiliac joints are normally outlined. Impression: No significant abnormality. Reviewed, dictated and finalized at [facility]. Impression: No significant abnormality.
--- OUTSIDE RECORDS SUMMARY | 2024-09-15 11:11 | XMS_ITS | Clinical Summary ---
Author Organization [facility] Address [address] [place] [address] Care Team Providers Care Doll Surgeon Name Role Phone Becky Momin NP Primary Care Provider [phone] Allergies Active Allergy Reactions Criticality Noted Date [...] 9:53 AM CDT Height 165.1 cm (5' 5) 09/29/2022 9:53 AM CDT Body Mass Index [...] 5 Years) and At-Risk Patients (6 to 49 Years) Aged Out No longer eligible b ased on patient's age to complete this topic RSV Immunizations Under 20 Months Aged Out No longer eligible b ased on patient's age to complete this topic [place] [address] [place] [address] Care Teams Doll Surgeon Relationship Specialty Start Date End Date Becky Momin NP [address] [place] [phone] PCP - General Nurse Practitioner Family 09/29/22
--- OUTSIDE RECORDS SUMMARY | 2024-09-15 11:11 | XMS_ITS | Clinical Summary ---
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
--- OUTSIDE RECORDS SUMMARY | 2024-09-15 11:11 | XMS_ITS | Clinical Summary ---
Author Organization [facility] Address [address] [place] [address] Care Team Providers Care Data Control Clerk Name Role Phone Mac Diez DO Primary Care Provider [phone] Source Comments [facility],non-owned Affiliates and Associated Physician Practices is amultiple site organization consisting of ambulatory clinics and hospital sitesin [place], [place], [place] and [place]. This disclosure is being madepursuant to the Care Everywhere program and may not contain all information available regarding this patient. Last updated 17.[facility] Allergies Active Allergy Reactions Criticality Noted Date Comments Penicillins Rash Medium 08/10/2019 Medications * Be aware that medications may not be up to date on this document. Alwaysverify current medications with the patient. albuterol HFA (Proventil; Ventolin; Proair) 108 (90 Base) MCG/ACT inhaler INHALE 1 PUFF BY MOUTH EVERY 4 HOURS NEEDED FOR SHORTNESS OF BREATH FOR WHEEZING 2 Active lidocaine (Lidoderm) 5 % patch USE 1 PATCH EXTERNALLY ONCE DAILY. LEAVE ON MOST PAINFUL AREA FOR UP TO 12 HOURS 2 Active medroxyPROGESTE Jalen (Depo-Provera) 150 MG/ML prefilled syringe ADMINISTER 1 ML IN THE MUSCLE EVERY 3 MONTHS 2 Active methocarbamol (Robaxin) 750 MG tablet Take 1 (one) tablet by mouth at bedtime 2 Active erythromycin (Romycin) 5 MG/GM ophthalmic ointment Apply thin ribbon to incisions four times a day as well as into both eyes at bedtime. 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 Gender Identity Not on file Sexual Orientation [...] 10:53 AM CDT Height 165.1 cm (5' 5) 06/15/2022 10:53 AM CDT Body Mass Index 47.09 06/15/2022 10:53 AM CDT Plan of Treatment Health Maintenance Due Date Last Done Comments HIV SCREENING 2000 HEPATITIS C SCREENING 03/26/2003 DTAP/TDAP/TD VACCINES (1 - Tdap) 2004 HEPATITIS B VACCINE (1 of 3 - 19+ 3-dose series) 2004 PAP SMEAR 2006 COVID-19 VACCINE ( - 2023-2 5 season) 2023 DEPRESSION SCREENING 03/08/2024 INFLUENZA VACCINE (#1) 2024 ZOSTER VACCINE (1 of 2) 2035 [...] patient's age to complete this topic Insurance [facility] Care Teams Data Control Clerk Relationship Specialty Start Date End Date Mac Diez DO [address] [place] [address] PCP - General Internal Medicine 03/18/22
== END 2024-09-15 11:07 | disposition home or self-care (01) ==
PROVIDERS: PCP Nurse Practitioner Family; Visit Provider Nurse Practitioner Family
DX: M54.50 Low back pain, unspecified (principal); G89.29 Other chronic pain
CPT/HCPCS: 72100